=== PATIENT | female | born 1960 | race Caucasian/White ===

== ENCOUNTER 2017-02-23 08:00 | Emergency (ER) | payer OTHER ==
[2017-02-23 08:06] VITALS: BP 130/78; PULSE 85; TEMP 98; BMI 38.6
[2017-02-23] MEDS ORDERED: RABIES VACCINE (PCEC)/PF 2.5 UNIT/VIAL IM ONE (08:29)
[2017-02-23] MEDS ORDERED: DIPHTH,PERTUSS(ACELL),TET 0.5 ML DISP.SYRIN IM ONE (08:29)
[2017-02-23] MEDS ORDERED: RABIES IMMUNE GLOBULIN 300 UNITS/2 ML VIAL IM ONE (08:32)
[2017-02-23] MEDS ORDERED: RABIES IMMUNE GLOBULIN 300 UNITS/2 ML VIAL ONE ×2 (08:39→08:51)
--- NOTE | 2017-02-23 09:13 | PDOC ---
History of Present Illness - General Chief Complaint: Bite Stated Complaint: CAT BITE Time Seen by Provider: 02/23/17 08:18 History Source: Patient Exam Limitations: No Limitations - History of Present Illness Initial Comments: 02/23/17 10:10 56-year-old female presents the ED with cat scratch and bites to bilateral hands after feeding of Juanjose kitten at her home this morning. Patient states wash with soap and water and came to the ER since the status of the kitten is unknown. Patient denies diabetes or immunosuppression. Timing/Duration: 1-3 hours Severity: mild Associated Symptoms: reports: denies symptoms Past History - Travel Traveled outside of the country in the last 30 days: No - Past Medical History Allergies/Adverse Reactions: Allergies Allergy/AdvReac Type Severity Reaction Status Date / Time No Known Allergies Allergy Verified 02/23/17 08:03 Home Medications: Ambulatory Orders Cholecalciferol (Vitamin D3) [Vitamin D3] 1,000 unit PO DAILY 01/29/14 Oxycodone HCl/Acetaminophen [Percocet 10-325 mg Tablet] 1 - 2 tab PO Q6H PRN 11/27 Metoprolol Tartrate [Lopressor -] 25 mg PO BID #14 09/18/15 Ascorbic Acid [Vitamin C -] 2,000 mg PO DAILY 01/25/16 Aspirin [ASA -] 81 mg PO DAILY 01/25/16 Gabapentin [Neurontin] 200 mg PO DAILY 01/25/16 Glucosamine Sulfate Dipot Chlr [Glucosamine] 1,000 mg PO DAILY 01/25/16 Loratadine [Claritin -] 10 mg PO DAILY 01/25/16 Multivit-Min/FA/Lycopen/Lutein [Centrum Silver Tablet] 1 each PO DAILY 01/25/16 Walland 3/Dha/Epa/Other Om3/D3 [Walland-3 + Vitamin D3 Liquid] 200 ml PO DAILY 01/24 Topiramate [Topamax] 50 mg PO AM 01/25/16 Topiramate [Topamax] 100 mg PO HS 01/25/16 Methocarbamol [Robaxin -] 500 mg PO TID PRN #20 tablet 03/26/16 Naproxen [Naprosyn -] 500 mg PO BID PRN #14 tablet 03/26/16 Amoxicillin/Potassium Clav [Augmentin 875-125 Tablet] 1 each PO BID #14 tablet 02/23/17 Cardiac Disorders: Yes (SVT) HTN: Yes Hypercholesterolemia: Yes - Surgical History Cardiac Surgery: Yes (ablation) Orthopedic Surgery: Yes (ROTATOR CUFF REPAIR, KNEE SX) - Immunization History Immunization Up to Date: Yes - Psycho/Social/Smoking Cessation Hx Anxiety: No Suicidal Ideation: No Smoking History: Former smoker Have you smoked in the past 12 months: No If you are a former smoker, when did you quit?: 2006 Information on smoking cessation initiated: No Hx Alcohol Use: No Drug/Substance Use Hx: No Substance Use Type: None Hx Substance Use Treatment: No Patient Lives Alone: No Review of Systems - Review of Systems Able to Perform ROS?: Yes Constitutional: No: Symptoms Reported Musculoskeletal: No: Symptoms Reported Integumentary: Yes: See HPI Neurological: No: Tingling *Physical Exam - Vital Signs Last Vital Signs Temp Pulse Resp BP Pulse Ox 98.0 F 85 18 130/78 97 02/23/17 08:01 02/23/17 08:01 02/23/17 08:01 02/23/17 08:01 02/23/17 08:01 - Physical Exam General Appearance: Yes: Nourished, Appropriately Dressed. No: Apparent Distress Integumentary: positive: Other (small puncture/superficial abrasions to bilateral first digits and dorsal aspect of left third digit over PIP joint ) Neurologic: positive: Motor Strength 5/5 (hand grasp and ambulatory) Medical Decision Making - Medical Decision Making 02/23/17 10:18 Patient here for evaluation of cat bite from a wild kitten. Patient had 4 puncture/abrasion areas to bilateral hands. Patient is to receive the rabies immunoglobulin, rabies vaccine, tetanus, and will be discharged home Augmentin. Forms completed for [facility]. Patient understands to return here and debris which is 02/26. *DC/Admit/Observation/Transfer Diagnosis at time of Disposition: Cat bite of finger Qualifiers: Encounter type: initial encounter Qualified Code(s): S61.259A - Open bite of unspecified finger without damage to nail, initial encounter - Discharge Dispostion Disposition: HOME Condition at time of disposition: Good - Prescriptions Prescriptions: Amoxicillin/Potassium Clav [Augmentin 875-125 Tablet] 1 each PO BID #14 tablet - Referrals Referrals: Veronica Amin MD [Primary Care Provider] - - Patient Instructions Printed Discharge Instructions: DI for Animal Bites, How to Care for a Wild Animal Bite Additional Instructions: Please keep area clean and dry. Please take Augmentin as prescribed until completed. Please return here on Monday for next rabies injection. - Post Discharge Activity Work/School Note: Rabies Vaccination F/U Estefania.
== END 2017-02-23 09:21 | disposition home or self-care (01) ==
LOC: JERFT 08:00 → SUPCPDRO 08:00 → JERFT 09:21
PROC: 3E0234Z Introduction of Serum, Toxoid and Vaccine into Muscle, Percutaneous Approach (ICD-10-PCS; principal; 2017-02-23)
PROC: 3E0234Z Introduction of Serum, Toxoid and Vaccine into Muscle, Percutaneous Approach (ICD-10-PCS; 2017-02-23)
PROC: 3E0234Z Introduction of Serum, Toxoid and Vaccine into Muscle, Percutaneous Approach (ICD-10-PCS; 2017-02-23)
DX: S61.452A Open bite of left hand, initial encounter (principal); S61.451A Open bite of right hand, initial encounter; W55.01XA Bitten by cat, initial encounter; Y93.K9 Activity, other involving animal care; Y92.89 Other specified places as the place of occurrence of the external cause; Y99.8 Other external cause status
CPT/HCPCS: 90375; 90675; 90715; 99281-25

== ENCOUNTER 2017-02-26 07:07 | Emergency (ER) | payer OTHER ==
[2017-02-26 07:15] VITALS: BP 117/70; PULSE 89; TEMP 97.8; BMI 38.6
[2017-02-26] MEDS ORDERED: RABIES VACCINE (PCEC)/PF 2.5 UNIT/VIAL IM ONE (07:53)
--- NOTE | 2017-02-26 07:59 | PDOC ---
History of Present Illness - General Chief Complaint: Revisit,Rabies Injection Stated Complaint: REVISIT Time Seen by Provider: 02/26/17 07:51 History Source: Patient Exam Limitations: No Limitations - History of Present Illness Initial Comments: 02/26/17 07:55 CHIEF COMPLAINT: Here for second rabies vaccination HISTORY OF PRESENT ILLNESS: Patient is a 56-year-old female, presents emergency department for second rabies vaccination. Patient was initially seen here on where rabies vaccination and immunoglobulin were given. Schedule will be given to patient for future follow-up. Continues to be on Augmentin. 02/28/17 13:16 Past History - Past Medical History Allergies/Adverse Reactions: Allergies Allergy/AdvReac Type Severity Reaction Status Date / Time No Known Allergies Allergy Verified 02/26/17 07:15 Home Medications: Ambulatory Orders Cholecalciferol (Vitamin D3) [Vitamin D3 -] 1,000 unit PO DAILY 02/26/17 Metoprolol Tartrate [Lopressor -] 25 mg PO BID 02/26/17 Multivit-Min/FA/Lycopen/Lutein [Centrum Silver Tablet] 1 tab PO DAILY 02/26/17 Tramadol HCl 50 mg PO BID 02/26/17 Cardiac Disorders: Yes (SVT) HTN: Yes Hypercholesterolemia: Yes - Surgical History Cardiac Surgery: Yes (ablation) Orthopedic Surgery: Yes (ROTATOR CUFF REPAIR, KNEE SX) - Immunization History Immunization Up to Date: Yes - Psycho/Social/Smoking Cessation Hx Anxiety: No Suicidal Ideation: No Smoking History: Former smoker Have you smoked in the past 12 months: No If you are a former smoker, when did you quit?: 10 YRS Information on smoking cessation initiated: No Hx Alcohol Use: No Drug/Substance Use Hx: No Substance Use Type: None Hx Substance Use Treatment: No Review of Systems - Review of Systems Constitutional: No: Symptoms Reported Musculoskeletal: No: Symptoms Reported Integumentary: No: Symptoms Reported Hematologic/Lymphatic: No: Symptoms Reported All Other Systems: Reviewed and Negative *Physical Exam - Vital Signs Last Vital Signs Temp Pulse Resp BP Pulse Ox 97.8 F 89 20 117/70 98 02/26/17 07:12 02/26/17 07:12 02/26/17 07:12 02/26/17 07:12 02/26/17 07:12 - Physical Exam General Appearance: Yes: Appropriately Dressed. No: Apparent Distress Respiratory/Chest: positive: Lungs Clear, Normal Breath Sounds Cardiovascular: positive: Regular Rhythm, Regular Rate Lymphatic: negative: Adenopathy, Tenderness Extremity: positive: Normal Capillary Refill, Normal Inspection, Normal Range of Motion. negative: Tender Integumentary: positive: Normal Color, Dry. negative: Erythema, Swelling, Ecchymosis, Bruising Neurologic: positive: Alert, Normal Mood/Affect Medical Decision Making - Medical Decision Making 02/26/17 07:57 A/P: Patient here for second rabies vaccination schedule be given to patient, patient tolerated vaccination without difficulty. Return as instructed. *DC/Admit/Observation/Transfer Diagnosis at time of Disposition: Encounter for repeat administration of rabies vaccination - Discharge Dispostion Disposition: HOME Condition at time of disposition: Good Admit: No - Referrals Referrals: Evelina Purcell MD [Primary Care Provider] - - Patient Instructions Printed Discharge Instructions: DI for Rabies Vaccine - Post Discharge Activity Work/School Note: Rabies Vaccination F/U Estefania.
== END 2017-02-26 08:13 | disposition home or self-care (01) ==
LOC: JER 07:07
PROC: 3E0234Z Introduction of Serum, Toxoid and Vaccine into Muscle, Percutaneous Approach (ICD-10-PCS; principal; 2017-02-26)
DX: Z20.3 Contact with and (suspected) exposure to rabies (principal)
CPT/HCPCS: 90675; 99281-25

== ENCOUNTER 2017-03-02 03:18 | Emergency (ER) | payer OTHER ==
[2017-03-02] MEDS ORDERED: RABIES VACCINE (PCEC)/PF 2.5 UNIT/VIAL IM ONE (03:31)
--- NOTE | 2017-03-02 03:31 | PDOC ---
History of Present Illness - General History Source: Patient Exam Limitations: No Limitations - History of Present Illness Initial Comments: 03/02/17 03:36 The patient is a 56-year-old female, with a past medical history of A. fib, HTN , and hyperlipidemia (on xarelto), who presents to the ED for her seventh rabies shot today. Patient was bit 7 days ago to the right thumb by a cat. The wound appears to be healing well. The patient denies having any symptoms at this time. <Estelita Davis - Last Filed: 03/02/17 03:36> - General History Source: Patient <WilfredoDominguez cobos - Last Filed: 03/02/17 04:08> - General Chief Complaint: Revisit,Rabies Injection Stated Complaint: REVISIT Time Seen by Provider: 03/02/17 03:31 Past History <Estelita Davis - Last Filed: 03/02/17 03:36> - Past Medical History Cardiac Disorders: Yes (SVT) HTN: Yes Hypercholesterolemia: Yes - Surgical History Cardiac Surgery: Yes (ablation) Orthopedic Surgery: Yes (ROTATOR CUFF REPAIR, KNEE SX) - Immunization History Immunization Up to Date: Yes - Psycho/Social/Smoking Cessation Hx Anxiety: No Suicidal Ideation: No Smoking History: Former smoker Have you smoked in the past 12 months: No If you are a former smoker, when did you quit?: 10 YRS Hx Alcohol Use: No Drug/Substance Use Hx: No Substance Use Type: None Hx Substance Use Treatment: No <Dominguez Wells - Last Filed: 03/02/17 04:08> - Past Medical History Allergies/Adverse Reactions: Allergies Allergy/AdvReac Type Severity Reaction Status Date / Time No Known Allergies Allergy Verified 02/26/17 07:15 Home Medications: Ambulatory Orders Cholecalciferol (Vitamin D3) [Vitamin D3 -] 1,000 unit PO DAILY 02/26/17 Metoprolol Tartrate [Lopressor -] 25 mg PO BID 02/26/17 Multivit-Min/FA/Lycopen/Lutein [Centrum Silver Tablet] 1 tab PO DAILY 02/26/17 Tramadol HCl 50 mg PO BID 02/26/17 Review of Systems - Review of Systems Able to Perform ROS?: Yes Comments:: 03/02/17 03:36 CONSTITUTIONAL: Absent: fever, no chills, no fatigue EYES: Absent: visual changes ENT: Absent: ear pain, no sore throat CARDIOVASCULAR: Absent: chest pain, no palpitations RESPIRATORY: Absent: cough, no SOB GI: Absent: abdominal pain, no nausea, no vomiting, no constipation, no diarrhea GENITOURINARY: Absent: dysuria, no frequency, no hematuria MUSKULOSKELETAL: Absent: back pain, no arthralgia, no myalgia SKIN: Present: well healing wound to right thumb Absent: pallor NEURO: Absent: headache <Estelita Davis - Last Filed: 03/02/17 03:36> *Physical Exam - Physical Exam Comments: 03/02/17 03:37 GENERAL: Well-appearing, well-nourished. No apparent distress. HEENT: Normocephalic, atraumatic. PERRL, EOM intact. CARDIOVASCULAR: Normal S1, S2. Regular rate and rhythm. PULMONARY: Clear to auscultation bilaterally. ABDOMEN: Soft, non-distended, non-tender. EXTREMITIES: Normal ROM in all four extremities. No gross deformities. SKIN: Warm, dry. +Well healed wound on dorsum of the right thumb NEUROLOGICAL: No focal neurological deficits. <Estelita Davis - Last Filed: 03/02/17 03:36> Medical Decision Making - Medical Decision Making 03/02/17 03:56 Dr. Wells: The scribe's documentation has been prepared under my direction and personally reviewed by me in its entirery. I confirm that the note above accurately reflects all work, treatment, procedures, and medical decision making performed by me. <Dominguez Wells - Last Filed: 03/02/17 04:08> *DC/Admit/Observation/Transfer - Attestations Scribe Attestion: 03/02/17 03:38 Documentation prepared by Estelita Davis, acting as medical records tech for Dominguez Wells MD. <Estelita Davis - Last Filed: 03/02/17 03:36> - Discharge Dispostion Admit: No <Dominguez Wells - Last Filed: 03/02/17 04:08> Diagnosis at time of Disposition: Encounter for repeat administration of rabies vaccination - Discharge Dispostion Disposition: HOME Condition at time of disposition: Stable - Referrals Referrals: Evelina Purcell MD [Primary Care Provider] - - Patient Instructions Printed Discharge Instructions: DI for Rabies Vaccine
== END 2017-03-02 04:11 | disposition home or self-care (01) ==
LOC: JER 03:18
PROC: 3E0234Z Introduction of Serum, Toxoid and Vaccine into Muscle, Percutaneous Approach (ICD-10-PCS; principal; 2017-03-02)
DX: Z20.3 Contact with and (suspected) exposure to rabies (principal); W55.01XD Bitten by cat, subsequent encounter
CPT/HCPCS: 90675; 99281-25

== ENCOUNTER 2017-03-09 09:59 | Emergency (ER) | payer OTHER ==
[2017-03-09 10:13] VITALS: BP 110/59; PULSE 82; TEMP 97.7; BMI 38.6
[2017-03-09] MEDS ORDERED: RABIES VACCINE (PCEC)/PF 2.5 UNIT/VIAL IM ONE (10:15)
--- NOTE | 2017-03-09 10:19 | PDOC ---
History of Present Illness - General Chief Complaint: Revisit,Rabies Injection Stated Complaint: RABIES SHOT, REVISIT Time Seen by Provider: 03/09/17 10:15 History Source: Patient Exam Limitations: No Limitations - History of Present Illness Initial Comments: 03/09/17 15:17 Foot fourth and final rabies vaccination. Had altered stray kitten 2 weeks ago where she was bitten in the left hand well trying to cotton picker the. Was unable to identify the kitten and started rabies inoculation and vaccination. No problems with any the previous vaccines Past History - Past Medical History Allergies/Adverse Reactions: Allergies Allergy/AdvReac Type Severity Reaction Status Date / Time No Known Allergies Allergy Verified 03/09/17 10:10 Home Medications: Ambulatory Orders Cholecalciferol (Vitamin D3) [Vitamin D3 -] 1,000 unit PO DAILY 02/26/17 Metoprolol Tartrate [Lopressor -] 25 mg PO BID 02/26/17 Multivit-Min/FA/Lycopen/Lutein [Centrum Silver Tablet] 1 tab PO DAILY 02/26/17 Tramadol HCl 50 mg PO BID 02/26/17 Aspirin [ASA -] 81 mg PO DAILY 03/09/17 Oxycodone HCl/Acetaminophen [Percocet 5-325 mg Tablet] 1 - 2 tab PO Q8H Cardiac Disorders: Yes (SVT) HTN: Yes Hypercholesterolemia: Yes - Surgical History Cardiac Surgery: Yes (ablation) Orthopedic Surgery: Yes (ROTATOR CUFF REPAIR, KNEE SX) - Immunization History Immunization Up to Date: Yes - Psycho/Social/Smoking Cessation Hx Anxiety: No Suicidal Ideation: No Smoking History: Former smoker Have you smoked in the past 12 months: No If you are a former smoker, when did you quit?: 10 YRS Information on smoking cessation initiated: No Hx Alcohol Use: No Drug/Substance Use Hx: No Substance Use Type: None Hx Substance Use Treatment: No *Physical Exam - Vital Signs Last Vital Signs Temp Pulse Resp BP Pulse Ox 97.7 F 82 19 110/59 96 03/09/17 10:10 03/09/17 10:10 03/09/17 10:10 03/09/17 10:10 03/09/17 10:10 - Physical Exam General Appearance: Yes: Nourished, Appropriately Dressed. No: Apparent Distress HEENT: positive: HIRAL, Normal ENT Inspection, TMs Normal, Pharynx Normal Musculoskeletal: positive: Normal Inspection Extremity: positive: Normal Capillary Refill, Other (well-healed puncture wound to left hand at webspace on the dorsum of hand. Has full range of motion of fingers, no pain) Integumentary: positive: Normal Color Neurologic: positive: signalling and communications engineer II-XII NML intact, Fully Oriented, Alert, Normal Mood/ Affect, Normal Response, Motor Strength 12/16 Medical Decision Making - Medical Decision Making 03/09/17 15:19 Fourth rabies vaccination received. Course completed *DC/Admit/Observation/Transfer Diagnosis at time of Disposition: Need for rabies vaccination - Discharge Dispostion Disposition: HOME Condition at time of disposition: Stable Admit: No - Referrals Referrals: Evelina Purcell MD [Primary Care Provider] - - Patient Instructions Additional Instructions: this is your last vaccine.
== END 2017-03-09 10:51 | disposition home or self-care (01) ==
LOC: JERFT 09:59
PROC: 3E0234Z Introduction of Serum, Toxoid and Vaccine into Muscle, Percutaneous Approach (ICD-10-PCS; principal; 2017-03-09)
DX: Z20.3 Contact with and (suspected) exposure to rabies (principal)
CPT/HCPCS: 90675; 99281-25

== ENCOUNTER 2017-05-12 05:53 | Day surgery (SDC) | payer OTHER ==
[2017-05-11 09:23] VITALS: BMI 38.2
[2017-05-12] MEDS ORDERED: MIDAZOLAM HCL 2 MG/2 ML SINGLE DOSE VIAL ONE (07:33)
[2017-05-12] MEDS ORDERED: SUCCINYLCHOLINE CHLORIDE 200 MG/10 ML VIAL ONE (07:39)
[2017-05-12] MEDS ORDERED: PROPOFOL 20 ML ONE ×2 (07:39→07:52)
--- NOTE | 2017-05-12 07:39 | HP ---
Past Medical History - Primary Care Physician PCP:: Hammad Dan - Admission Chief Complaint: postmenopausal vaginal bleeding History of Present Illness: 56 yo f with hx of PMB and thicken EM , obesity, HTN admitted for hysteroscopy D &C , rba discussed History Source: Patient Limitations to Obtaining History: No Limitations - Past Medical History Cardiovascular: Yes: HTN, Hyperlipdemia Gastrointestinal: Yes: GERD. No: GI Bleed Musculoskeletal: Yes: Chronic low back pain - Past Surgical History Past Surgical History: Yes: Tubal Ligation (sling procedure,) Hx Myomectomy: No Hx Transabdominal Cerclage: No - Smoking History Smoking history: Former smoker Have you smoked in the past 12 months: No If you are a former smoker, when did you quit?: 10 YRS - Alcohol/Substance Use Hx Alcohol Use: No - Social History Usual Living Arrangement: Yes: With Spouse History of Recent Travel: No Home Medications - Allergies Allergies/Adverse Reactions: Allergies Allergy/AdvReac Type Severity Reaction Status Date / Time No Known Allergies Allergy Verified 05/12/17 06:31 - Home Medications Home Medications: Ambulatory Orders Cholecalciferol (Vitamin D3) [Vitamin D3 -] 1,000 unit PO DAILY 02/26/17 Metoprolol Tartrate [Lopressor -] 25 mg PO BID 02/26/17 Multivit-Min/FA/Lycopen/Lutein [Centrum Silver Tablet] 1 tab PO DAILY 02/26/17 Aspirin [ASA -] 81 mg PO DAILY 03/09/17 Oxycodone HCl/Acetaminophen [Percocet 5-325 mg Tablet] 1 - 2 tab PO Q8H Liraglutide [Saxenda] 3 mg SQ DAILY 05/11/17 Sumatriptan Succinate [Imitrex -] 100 mg PO PRN PRN 05/11/17 Lidocaine 5% Patch [Lidoderm Patch -] 1 patch TP PRN PRN 05/12/17 Review of Systems - Review of Systems Constitutional: reports: No Symptoms Eyes: reports: No Symptoms HENT: reports: No Symptoms Neck: reports: No Symptoms Cardiovascular: reports: No Symptoms Respiratory: reports: No Symptoms Gastrointestinal: reports: No Symptoms Genitourinary: reports: Vaginal Bleeding Breasts: reports: No Symptoms Reported Musculoskeletal: reports: No Symptoms Integumentary: reports: No Symptoms Neurological: reports: No Symptoms Endocrine: reports: No Symptoms Hematology/Lymphatic: reports: No Symptoms Psychiatric: reports: No Symptoms Physical Exam-FISH WORM GROWER Vital Signs: Vital Signs Temperature 97.9 F 05/12/17 06:26 Pulse Rate 86 05/12/17 06:26 Respiratory Rate 20 05/12/17 06:26 Blood Pressure 126/77 05/12/17 06:26 O2 Sat by Pulse Oximetry (%) 98 05/12/17 06:26 Constitutional: Yes: Well Nourished, No Distress, Calm, Obese Eyes: Yes: WNL, Conjunctiva Clear, EOM Intact HENT: Yes: WNL, Atraumatic, Normocephalic Neck: Yes: WNL, Supple, Trachea Midline Cardiovascular: Yes: WNL, Regular Rate and Rhythm Respiratory: Yes: WNL, Regular, CTA Bilaterally Gastrointestinal: Yes: WNL ...Rectal Exam: Yes: WNL Renal/: Yes: WNL Pelvis: Yes: WNL External Genitalia: Yes: Normal Vaginal Exam: Yes: Normal Cervix: Yes: Normal Uterus: Yes: Normal Adnexa: Not Palpable: Left, Right Breast(s): Yes: WNL Musculoskeletal: Yes: WNL Extremities: Yes: WNL Integumentary: Yes: WNL Neurological: Yes: WNL, Alert, Oriented ...Motor Strength: WNL Psychiatric: Yes: WNL, Alert, Oriented Problem List - Problem (1) Postmenopausal bleeding Code(s): N95.0 - POSTMENOPAUSAL BLEEDING (2) Thickened endometrium Code(s): R93.8 - ABNORMAL FINDINGS ON DIAGNOSTIC IMAGING OF BODY STRUCTURES Assessment/Plan hysteroscopy D&C , polypectomy
[2017-05-12] MEDS ORDERED: IBUPROFEN 800 MG/8 ML IJ IVPB PRN (07:40)
[2017-05-12] MEDS ORDERED: IBUPROFEN 600 MG TABLET (FP) PO PRN (07:40)
[2017-05-12] MEDS ORDERED: oxyCODONE HCL 5 MG TABLET PO PRN ×2 (07:40→08:19)
[2017-05-12] MEDS ORDERED: ONDANSETRON 4 MG/2 ML VIAL IVPB PRN (07:40)
[2017-05-12] MEDS ORDERED: ELECTROLYTE-148 SOLN 1,000 ML IV SCH (07:45)
[2017-05-12] MEDS ORDERED: PROMETHAZINE HCL 25 MG/1 ML VIAL IVPUSH PRN (08:19)
[2017-05-12] MEDS ORDERED: LACTATED RINGERS SOLUTION 1,000 ML IV SCH (08:30)
--- NOTE | 2017-05-12 08:49 | OP ---
DATE OF OPERATION: 05/12/2017 PREOPERATIVE DIAGNOSES: Postmenopausal bleeding, thickened endometrium. POSTOPERATIVE DIAGNOSES: Postmenopausal bleeding, thickened endometrium. PROCEDURE: Hysteroscopy, dilatation and curettage. SURGEON: Hmamad Dan MD ANESTHESIA: General. ANESTHESIOLOGIST: Nano Espinoza MD ESTIMATED BLOOD LOSS: 25 mL. OPERATION: Patient was taken to the operating room. Under adequate general anesthesia placed in lithotomy position. Examination under anesthesia revealed external genitalia appeared to be normal. Vagina was normal. Cervix was clean, no gross lesion. There was a grade 2 cystocele and there was a uterus normal size. Adnexae: No masses were palpable. Then, with a weighted speculum in the vagina, anterior lip of the cervix was grasped with single-tooth tenaculum. Endocervical curetting was done. Uterine cavity was sounded to 6 cm. Then, hysteroscope was introduced. Visualization of endocervical canal appeared to be normal. Uterus was atrophic at the lower uterine area and there was a small amount of tissue at both cornual regions of the uterus. No polyp was seen. Both cornual regions were visualized. Hysteroscope was withdrawn. Cervix was gradually dilated with Hegar dilator and then endometrium was curetted. A small amount of tissue was obtained. Patient tolerated procedure well, left the OR in good condition. Liseth [id number]
[2017-05-12 10:25] VITALS: TEMP 98.2
[2017-05-12] MEDS ORDERED: IBUPROFEN 600 MG TABLET (FP) PO ONE (12:05)
[2017-05-12 12:36] VITALS: BP 129/72; PULSE 79
--- NOTE | 2017-05-12 12:40 | EKG ---
Test Reason : Blood Pressure : / mmHG Vent. Rate : 073 BPM Atrial Rate : 073 BPM P-R Int : 198 ms QRS Dur : 082 ms QT Int : 376 ms P-R-T Axes : 066 014 017 degrees QTc Int : 414 ms NORMAL SINUS RHYTHM POSSIBLE LEFT ATRIAL ENLARGEMENT NONSPECIFIC ST ABNORMALITY WHEN COMPARED WITH ECG OF 25-JAN-2016 07:35, NO SIGNIFICANT CHANGE WAS FOUND Confirmed by ALFREDA ROSSI MD ([id number]) on 05/12/2017 12:40:13 PM Referred By: TERESITA BARROSO Confirmed By:ALFREDA ROSSI MD
--- NOTE | 2017-05-15 11:27 | PATH ---
Surgical Pathology Report Patient Name: IRIS CHRISTIANSEN [facility]. Rec. #: [id number] /Age/Gender: 1960 (Age: 56) / F Account: [id number] Location: [facility] SURGICAL Taken: 05/11/2017 Received: 05/12/2017 Reported: 05/15/2017 Physicians: Hammad Dan M.D. Specimen(s) Received A: ENDOCERVICAL CURETTINGS B: ENDOMETRIAL CURETTINGS Clinical History Postmenopausal bleeding Final Diagnosis A. ENDOCERVIX, CURETTAGE: FRAGMENTS OF BENIGN ENDOCERVICAL TISSUE. B. ENDOMETRIUM, CURETTAGE: FRAGMENTS OF ENDOMETRIAL POLYP. BACKGROUND STRIPS OF ATROPHIC ENDOMETRIUM. FRAGMENTS OF BENIGN SQUAMOUS EPITHELIUM AND ENDOCERVICAL TISSUE. Electronically Signed Iraj He M.D. Gross Description A. Received in formalin labelled "endocervical curetting" is a 1.0 cm in greatest dimension aggregate of mucoid material. Embedding will be attempted in a single cassette. B. Received in formalin labelled "endometrial curetting" is a 0.6 cm greatest dimension aggregate of serrano tissue fragments. Totally submitted in one cassette. [facility]/05/12/2017 [facility]/05/12/2017
== END 2017-05-12 12:35 | disposition home or self-care (01) ==
LOC: JASU-SURG 05:53
PROVIDERS: ATTEND Obstetrics & Gynecology
PROC: 0UDB8ZX Extraction of Endometrium, Via Natural or Artificial Opening Endoscopic, Diagnostic (ICD-10-PCS; principal; 2017-05-12 07:30)
DX: N95.0 Postmenopausal bleeding (principal); R93.8 Abnormal findings on diagnostic imaging of other specified body structures
CPT/HCPCS: 88305-TC; 93005; 93010; 94760

== ENCOUNTER 2017-05-31 05:59 | Inpatient (IN) | payer OTHER ==
[2017-05-31] MEDS ORDERED: ONDANSETRON 4 MG/2 ML VIAL IVPUSH STA (06:07)
[2017-05-31] MEDS ORDERED: morphine CARPU-JECT 2 MG/1 ML DISP.SYRIN IVPUSH ONE ×2 (06:07→06:15)
--- NOTE | 2017-05-31 06:08 | PDOC ---
History of Present Illness - General History Source: Patient Exam Limitations: No Limitations - History of Present Illness Initial Comments: 05/31/17 06:12 The patient is a 57 year old female, with a significant past medical history of A. fib, HTN, and Hyperlipidemia who presents to the emergency department with L flank pain. 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 Patient denies any dysuria, frequency, urgency or hematuria. She denies chest pain, headache or dizziness. She denies fever, chills, abdominal pain, nausea, vomit.Patient denies sick contacts or recent travel. Allergies: NKA Past surgical history: None Social history: None PCP: Dr. Purcell <Saundra Hameed - Last Filed: 05/31/17 06:12> - General History Source: Patient <Dominguez Wells - Last Filed: 05/31/17 19:41> - General Stated Complaint: LFT FLANK PAIN Time Seen by Provider: 05/31/17 06:05 Past History <Saundra Hameed - Last Filed: 05/31/17 06:12> - Past Medical History Cardiac Disorders: Yes (SVT) HTN: Yes Hypercholesterolemia: Yes - Surgical History Cardiac Surgery: Yes (ablation (2016)) Orthopedic Surgery: Yes (ROTATOR CUFF REPAIR, KNEE SX) - Immunization History Immunization Up to Date: Yes - Suicide/Smoking/Psychosocial Hx Smoking History: Former smoker Have you smoked in the past 12 months: No If you are a former smoker, when did you quit?: 10 YRS Hx Alcohol Use: No Drug/Substance Use Hx: No Substance Use Type: None Hx Substance Use Treatment: No <Dominguez Wells - Last Filed: 05/31/17 19:41> - Past Medical History Allergies/Adverse Reactions: Allergies Allergy/AdvReac Type Severity Reaction Status Date / Time No Known Allergies Allergy Verified 05/31/17 06:07 Home Medications: Ambulatory Orders Cholecalciferol (Vitamin D3) [Vitamin D3 -] 1,000 unit PO DAILY 02/26/17 Metoprolol Tartrate [Lopressor -] 25 mg PO BID 02/26/17 Multivit-Min/FA/Lycopen/Lutein [Centrum Silver Tablet] 1 tab PO DAILY 02/26/17 Aspirin [ASA -] 81 mg PO DAILY 07/27/17 Oxycodone HCl/Acetaminophen [Percocet 5-325 mg Tablet] 1 - 2 tab PO Q8H Liraglutide [Saxenda] 3 mg SQ DAILY 05/11/17 Sumatriptan Succinate [Imitrex -] 100 mg PO PRN PRN 05/11/17 Lidocaine 5% Patch [Lidoderm Patch -] 1 patch TP DAILY PRN 05/12/17 Review of Systems - Review of Systems Able to Perform ROS?: Yes Comments:: 05/31/17 06:12 CONSTITUTIONAL: Absent: fever, chills, diaphoresis, generalized weakness, malaise, loss of appetite HEENT: Absent: rhinorrhea, nasal congestion, throat pain, throat swelling, difficulty swallowing, mouth swelling, ear pain, eye pain, visual Changes CARDIOVASCULAR: Absent: chest pain, syncope, palpitations, irregular heart rate, lightheadedness , peripheral edema RESPIRATORY: Absent: cough, shortness of breath, dyspnea with exertion, orthopnea, wheezing, stridor, hemoptysis GASTROINTESTINAL: Absent: abdominal pain, abdominal distension, nausea, vomiting, diarrhea, constipation, melena, hematochezia GENITOURINARY: +L flank pain Absent: dysuria, frequency, urgency, hesitancy, hematuria, genital pain MUSCULOSKELETAL: Absent: myalgia, arthralgia, joint swelling SKIN: Absent: rash, itching, pallor HEMATOLOGIC/IMMUNOLOGIC: Absent: easy bleeding, easy bruising, lymphadenopathy, frequent infections ENDOCRINE: Absent: unexplained weight gain, unexplained weight loss, heat intolerance, cold intolerance NEUROLOGIC: Absent: headache, focal weakness or paresthesias, dizziness, unsteady gait, seizure, mental status changes, bladder or bowel incontinence PSYCHIATRIC: Absent: anxiety, depression, suicidal or homicidal ideation, hallucinations. <Saundra Hameed - Last Filed: 05/31/17 06:12> *Physical Exam - Vital Signs Last Vital Signs Temp Pulse Resp BP Pulse Ox 97.5 F L 83 18 132/81 100 05/31/17 06:07 05/31/17 06:07 05/31/17 06:07 05/31/17 06:07 05/31/17 06:07 - Physical Exam Comments: 05/31/17 06:12 GENERAL: Well developed, well nourished. Awake and alert. +In moderate distress. HEENT: Normocephalic, atraumatic. PERRLA, EOMI. No conjunctival pallor. Sclerae are non -icteric. Moist mucous membranes. Oropharynx is clear. NECK: Supple. Full ROM. No JVD. Carotid pulses 2+ and symmetric, without bruits. No thyromegaly. No lymphadenopathy. CARDIOVASCULAR: Regular rate and rhythm. No murmurs, rubs, or gallops. Distal pulses are 2+ and symmetric. PULMONARY: No evidence of respiratory distress. Lungs clear to auscultation bilaterally. No wheezing, rales or rhonchi. ABDOMINAL: +L CVA tenderness. Soft. Non-tender. Non-distended. No rebound or guarding. No organomegaly. Normoactive bowel sounds. MUSCULOSKELETAL Normal range of motion at all joints. No bony deformities or tenderness. No CVA tenderness. EXTREMITIES: No cyanosis. No clubbing. No edema. No calf tenderness. SKIN: Warm and dry. Normal capillary refill. No rashes. No jaundice. NEUROLOGICAL: Alert, awake, appropriate. Cranial nerves 2-12 intact. No deficits to light touch and temperature in face, upper extremities and lower extremities. No motor deficits in the in face, upper extremities and lower extremities. Normoreflexic in the upper and lower extremities. Normal speech. Toes are downgoing bilaterally. Gait is normal without ataxia. PSYCHIATRIC: Cooperative. Good eye contact. Appropriate mood and affect. <Saundra Hameed - Last Filed: 05/31/17 06:12> ED Treatment Course - LABORATORY CBC & Chemistry Diagram: 05/31/17 06:10 05/31/17 06:10 <Dominguez Wells - Last Filed: 05/31/17 19:41> Medical Decision Making - Medical Decision Making 05/31/17 19:41 Dr. Wells: The scribe's documentation has been prepared under my direction and personally reviewed by me in its entirery. I confirm that the note above accurately reflects all work, treatment, procedures, and medical decision making performed by me. <Dominguez Wells - Last Filed: 05/31/17 19:41> *DC/Admit/Observation/Transfer - Attestations Scribe Attestion: 05/31/17 06:12 Documentation prepared by Saundra Hameed, acting as medical cash poster for Dominguez Wells DO. <Saundra Hameed - Last Filed: 05/31/17 06:12> <Dominguez Wells - Last Filed: 05/31/17 19:41> Diagnosis at time of Disposition: Flank pain, Colitis - Discharge Dispostion Condition at time of disposition: Stable
[2017-05-31] MEDS ORDERED: ONDANSETRON 4 MG/2 ML VIAL ONE (06:11)
[2017-05-31] MEDS ORDERED: morphine CARPU-JECT 10 MG/1 ML DISP.SYRIN ONE (06:11)
[2017-05-31 06:20] LABS: BASOPHIL 0.6 % (0-2.0); EOSINOPHIL 1.3 % (0-4.5); MCH 31.7 pg (25.7-33.7); MCHC 33.6 g/dl (32.0-36.0); MEAN CELL VOLUME 94.4 fl (80-96); NEUTROPHILS 41.1 % (42.8-82.8); PLATELET COUNT 304 K/MM3 (134-434); RDW 14.4 % (11.6-15.6); WHITE BLOOD COUNT 9.6 K/mm3 (4.0-10.0)
[2017-05-31 06:33] VITALS: BMI 37.8
[2017-05-31 06:42] LABS: INR 0.98 (0.82-1.09); PROTHROMBIN TIME (PATIENT) 11.1 SEC (9.98-11.88)
[2017-05-31 06:53] LABS: ALK PHOS 87 U/L (45-117); ANION GAP 7 (8-16); BILIRUBIN,TOTAL 0.4 mg/dL (0.2-1.0); CALCIUM 8.6 mg/dL (8.5-10.1); CO2 27 mmol/L (21-32); CREATININE 0.6 mg/dL (0.55-1.02); GLUCOSE,RANDOM 98 mg/dL (74-106); SGOT/AST 30 U/L (15-37); SGPT/ALT 32 U/L (12-78); TOT PROT 7.2 g/dl (6.4-8.2)
[2017-05-31 07:12] LABS: URINE APPEARANCE SLCLOUDY; URINE BILIRUBIN NEGATIVE (NEGATIVE); URINE BLOOD NEGATIVE (NEGATIVE); URINE COLOR AMBER; URINE GLUCOSE (UA) NEGATIVE (NEGATIVE); URINE KETONE TRACE (NEGATIVE); URINE NITRITE NEGATIVE (NEGATIVE); URINE PROTEIN NEGATIVE (NEGATIVE); URINE UROBILINOGEN NEGATIVE mg/dL (0.2-1.0)
--- NOTE | 2017-05-31 09:09 | PDOC ---
*Physical Exam - Vital Signs Last Vital Signs Temp Pulse Resp BP Pulse Ox 98.1 F 71 20 135/78 100 05/31/17 08:00 05/31/17 08:00 05/31/17 08:00 05/31/17 08:00 05/31/17 08:00 <Michael Lees - Last Filed: 05/31/17 13:41> - Vital Signs Last Vital Signs Temp Pulse Resp BP Pulse Ox 98.1 F 71 20 135/78 100 05/31/17 08:00 05/31/17 08:00 05/31/17 08:00 05/31/17 08:00 05/31/17 08:00 <Rimma Ritchie - Last Filed: 05/31/17 14:22> ED Treatment Course - LABORATORY CBC & Chemistry Diagram: 05/31/17 06:10 05/31/17 06:10 - ADDITIONAL ORDERS Additional order review: Laboratory Results 05/31/17 05/31/17 05/31/17 06:50 06:10 06:10 PT with INR 11.10 INR 0.98 Sodium 138 Potassium 3.9 Chloride 104 Carbon Dioxide 27 Anion Gap 7 L BUN 22 H D Creatinine 0.6 Creat Clearance w eGFR > 60 Random Glucose 98 D Calcium 8.6 Total Bilirubin 0.4 AST 30 D ALT 32 Alkaline Phosphatase 87 Total Protein 7.2 Albumin 4.0 Urine Color La Urine Appearance Slcloudy Urine pH 5.0 Urine Protein Negative Urine Glucose (UA) Negative Urine Ketones Trace H Urine Blood Negative Urine Nitrite Negative Urine Bilirubin Negative Urine Urobilinogen Negative 05/31/17 06:10 RBC 4.19 MCV 94.4 MCHC 33.6 RDW 14.4 MPV 7.0 L Neutrophils % 41.1 L Lymphocytes % 47.8 H Monocytes % 9.2 Eosinophils % 1.3 Basophils % 0.6 - RADIOLOGY Radiology Studies Ordered: Category Date Time Status ABDOMEN & PELVIS CT WITH CONTR [CT] Stat CT Scan 05/31/17 08:29 Ordered - Medications Given in the ED: ED Medications Discontinued Medications Generic Name Dose Route Start Last Admin Trade Name Freq PRN Reason Stop Dose Admin Morphine Sulfate 2 mg 05/31/17 06:07 05/31/17 06:15 Morphine Injection - IVPUSH 05/31/17 06:08 2 mg ONCE ONE Administration Morphine Sulfate 6 mg 05/31/17 06:15 05/31/17 06:57 Morphine Injection - IVPUSH 05/31/17 06:16 6 mg ONCE ONE Administration Ondansetron HCl 4 mg 05/31/17 06:07 05/31/17 06:15 Zofran Injection IVPUSH 05/31/17 06:08 4 mg ONCE STA Administration <Michael Lees - Last Filed: 05/31/17 13:41> - LABORATORY CBC & Chemistry Diagram: 05/31/17 06:10 05/31/17 06:10 - ADDITIONAL ORDERS Additional order review: Laboratory Results 05/31/17 05/31/17 05/31/17 06:50 06:10 06:10 PT with INR 11.10 INR 0.98 Sodium 138 Potassium 3.9 Chloride 104 Carbon Dioxide 27 Anion Gap 7 L BUN 22 H D Creatinine 0.6 Creat Clearance w eGFR > 60 Random Glucose 98 D Calcium 8.6 Total Bilirubin 0.4 AST 30 D ALT 32 Alkaline Phosphatase 87 Total Protein 7.2 Albumin 4.0 Urine Color La Urine Appearance Slcloudy Urine pH 5.0 Urine Protein Negative Urine Glucose (UA) Negative Urine Ketones Trace H Urine Blood Negative Urine Nitrite Negative Urine Bilirubin Negative Urine Urobilinogen Negative 05/31/17 06:10 RBC 4.19 MCV 94.4 MCHC 33.6 RDW 14.4 MPV 7.0 L Neutrophils % 41.1 L Lymphocytes % 47.8 H Monocytes % 9.2 Eosinophils % 1.3 Basophils % 0.6 - Medications Given in the ED: ED Medications Discontinued Medications Generic Name Dose Route Start Last Admin Trade Name Rae PRN Reason Stop Dose Admin Morphine Sulfate 2 mg 05/31/17 06:07 05/31/17 06:15 Morphine Injection - IVPUSH 05/31/17 06:08 2 mg ONCE ONE Administration Morphine Sulfate 6 mg 05/31/17 06:15 05/31/17 06:57 Morphine Injection - IVPUSH 05/31/17 06:16 6 mg ONCE ONE Administration Ondansetron HCl 4 mg 05/31/17 06:07 05/31/17 06:15 Zofran Injection IVPUSH 05/31/17 06:08 4 mg ONCE STA Administration <Rimma Ritchie - Last Filed: 05/31/17 14:22> Medical Decision Making - Medical Decision Making 05/31/17 09:25 Waiting for Ur Leukocyte Esterase time stamped at 6:50am. @8:35am Called Lab at [facility]. State they haven't received delivery from [facility] yet today Called [id number] lab here. Stated they would check for specimen ? @8:41am received call from [facility] lab who reported that they received first batch of specimens and did not receive this patients specimen. @8:43am called [facility] lab here, state that they do have the specimen and it won't be sent over to the [facility] lab until 10:00am 05/31/17 14:20 Dr. Purcell was paged via office phone. AKOSUA Nicole is operational communication chief for hospital admissions. AKOSUA Nicole called back. Dr. Calderón was paged via office phone at 1:46pm. Dr. Calderón was paged and connected at 2:20pm. <Rimma Ritchie - Last Filed: 05/31/17 14:22> *DC/Admit/Observation/Transfer - Discharge Dispostion Admit: Yes - Attestations Physician Attestion: 05/31/17 13:43 I, Dr. Michael Lees MD, attest that this document has been prepared under my direction and personally reviewed by me in its entirety. I further attest, that it accurately reflects all work, treatment, procedures and medical decision -making performed by me. <Michael Lees - Last Filed: 05/31/17 13:41> <Rimma Ritchie - Last Filed: 05/31/17 14:22> Diagnosis at time of Disposition: Flank pain - Discharge Dispostion Condition at time of disposition: Stable - Referrals - Patient Instructions - Post Discharge Activity
[2017-05-31] MEDS ORDERED: ACETAMINOPHEN 1000 MG/100 ML VIAL (NON FORMULARY) IVPB ONE (10:15)
[2017-05-31] MEDS ORDERED: ACETAMINOPHEN INJECTION 100 ML IVPB ONE (10:32)
[2017-05-31 10:50] LABS: URINE BACTERIA MODERATE /hpf (NEGATIVE); URINE LEUK ESTERASE 1+ (NEGATIVE); URINE RBC 0-3 /hpf (0-3)
[2017-05-31] MEDS ORDERED: KETOROLAC TROMETHAMINE 15 MG/ML VIAL IVPUSH ONE (12:15)
[2017-05-31] MEDS ORDERED: KETOROLAC TROMETHAMINE 15 MG/ML VIAL ONE (12:29)
[2017-05-31] MEDS ORDERED: SODIUM CHLORIDE 0.9% 500 ML INFUS.BAG IV ONE (14:22)
[2017-05-31] MEDS ORDERED: DEXTROSE 5%-LACTATED RINGERS 1,000 ML IV SCH (14:30)
[2017-05-31] MEDS ORDERED: morphine CARPU-JECT 2 MG/1 ML DISP.SYRIN IVPUSH PRN (15:43)
[2017-05-31] MEDS ORDERED: ONDANSETRON 4 MG/2 ML VIAL IVPUSH PRN (15:46)
[2017-05-31] MEDS ORDERED: ACETAMINOPHEN 1000 MG/100 ML VIAL (NON FORMULARY) IVPB PRN (15:46)
[2017-05-31] MEDS ORDERED: LIDOCAINE 5% TOPICAL PATCH TP PRN (15:47)
--- NOTE | 2017-05-31 16:02 | HP ---
Admitting History and Physical - Primary Care Physician PCP: Evelina Purcell - Admission Chief Complaint: Abdominal pain. Diarrhea History of Present Illness: Ms. 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 She was seen by her PCP Dr Purcell at the office 1 day ago and thought to be rib pain. This AM when she came in to work she took aleve, tylenol and percocet that she usually takes for her chronic right knee pain. An hour after the medication, she had an episode of loose stool and LUQ of 10/10 and was brought in to ER by her fellow nurse. Patient denies any dysuria, frequency, urgency or hematuria, prior diarrhea, chest pain, headache or dizziness. Also denies fever, chills, abdominal pain, nausea, vomit. Patient denies sick contacts or recent travel. History Source: Patient Limitations to Obtaining History: No Limitations - Past Medical History Cardiovascular: Yes: HTN, Hyperlipdemia, Other (SVT's with cardiac ablation in 2016) Gastrointestinal: Yes: Diverticulosis (in colonoscopy done in 2014 by Efrain Barros MD), GERD, Hemorrhoids. No: GI Bleed Reproductive: Yes: Other (Ovarian cysts) ...: No ...Para: 2 Musculoskeletal: Yes: Chronic low back pain, Other (lumbar spine disc herniations) Endocrine: Yes: Other (obesity) - Past Surgical History Past Surgical History: Yes: Tubal Ligation (sling procedure,) Additional Past Surgical History: BL knee meniscal tear repair, right shoulder rotator cuff repair, bladder lift, D&C - Smoking History Smoking history: Former smoker (31 pack years) Have you smoked in the past 12 months: No If you are a former smoker, when did you quit?: 10 YRS - Alcohol/Substance Use Hx Alcohol Use: Yes (socially) History of Substance Use: reports: None - Social History Usual Living Arrangement: Yes: With Spouse ADL: Independent History of Recent Travel: No Home Medications - Allergies Allergies/Adverse Reactions: Allergies Allergy/AdvReac Type Severity Reaction Status Date / Time No Known Allergies Allergy Verified 05/31/17 06:07 - Home Medications Home Medications: Ambulatory Orders Cholecalciferol (Vitamin D3) [Vitamin D3 -] 1,000 unit PO DAILY 02/26/17 Metoprolol Tartrate [Lopressor -] 25 mg PO BID 02/26/17 Multivit-Min/FA/Lycopen/Lutein [Centrum Silver Tablet] 1 tab PO DAILY 02/26/17 Aspirin [ASA -] 81 mg PO DAILY 03/09/17 Oxycodone HCl/Acetaminophen [Percocet 5-325 mg Tablet] 1 - 2 tab PO Q8H Liraglutide [Saxenda] 3 mg SQ DAILY 05/11/17 Sumatriptan Succinate [Imitrex -] 100 mg PO PRN PRN 05/11/17 Lidocaine 5% Patch [Lidoderm Patch -] 1 patch TP DAILY PRN 05/12/17 Family Disease History - Family Disease History Family Disease History: Diabetes: Mother (HTN,HL,DM2,Obesity,basal cell carcinoma of the skin), Daughter (2 daughters healthy), Heart Disease: Father ( emphysema 2/2smoking, HI,pulmonayr embolism, alcohol abuse,Psoriasis), Mother, CA: Mother, Respiratory: Father, Other: Father, Mother, Brother (2 brother's, 1 with alc abuse, psoriasis; 2nd brother: no significant hx) Other Family History: MGM-basal cell carcinoma,depression,dementia. MGF- drug abuse,depression,anxiety,PTSD (Vet). PGM-OA. PGF-HI,arrhythmia Review of Systems - Review of Systems Constitutional: reports: No Symptoms Eyes: reports: No Symptoms Neck: reports: No Symptoms Cardiovascular: reports: No Symptoms Respiratory: reports: No Symptoms Gastrointestinal: reports: Abdominal Pain, Diarrhea Genitourinary: reports: No Symptoms Breasts: reports: No Symptoms Reported Musculoskeletal: reports: No Symptoms Integumentary: reports: No Symptoms Neurological: reports: No Symptoms Endocrine: reports: No Symptoms Hematology/Lymphatic: reports: No Symptoms Psychiatric: reports: No Symptoms Pain Intensity: 5 Physical Examination Vital Signs: Vital Signs Temperature 98.1 F 05/31/17 08:00 Pulse Rate 68 05/31/17 14:45 Respiratory Rate 18 05/31/17 14:45 Blood Pressure 110/50 05/31/17 14:45 O2 Sat by Pulse Oximetry (%) 99 05/31/17 14:45 Constitutional: Yes: Well Nourished, No Distress, Calm Cardiovascular: Yes: Regular Rate and Rhythm Respiratory: Yes: Regular Gastrointestinal: Yes: Soft, Abdomen, Obese, Hyperactive Bowel Sounds Renal/: Yes: CVA Tenderness - Left Edema: No Peripheral Pulses WNL: Yes Neurological: Yes: Alert, Oriented Psychiatric: Yes: Alert, Oriented Imaging - Results Cat Scan: Report Reviewed Problem List - Problems (1) Colitis Assessment/Plan: -GI consult -CT scan reviewed -NPO for now -IVF -stool sample for O&P, cdiff and culture Code(s): K52.9 - NONINFECTIVE GASTROENTERITIS AND COLITIS, UNSPECIFIED (2) Diverticulosis Code(s): K57.90 - DVRTCLOS OF INTEST, PART UNSP, W/O PERF OR ABSCESS W/O BLEED (3) Flank pain Assessment/Plan: Colitis? last colonoscopy in 2014 had left colon diverticulosis Code(s): R10.9 - UNSPECIFIED ABDOMINAL PAIN (4) Low back pain Assessment/Plan: -mri lumbar spine -neurology consult Code(s): M54.5 - LOW BACK PAIN Assessment/Plan see problem list
[2017-05-31] MEDS: LACTATED RINGERS SOLUTION 1,000 ML IV SCH (17:04)
[2017-05-31] MEDS ORDERED: METOPROLOL TARTRATE 5 MG/5 ML VIAL IVPB PRN (17:18)
--- NOTE | 2017-05-31 19:30 | CON.GI ---
Consult Consult Specialty:: Gastroenterology Referred by:: Dr Purcell/ Miss Corey [facility] [employer] - History of Present Illness Chief Complaint: abnormal catscan left lower quadrant History of Present Illness: 57 y/o Female with PMH of herniated disc was complainig of left lower back pain radiating to the left lower quadrant. She denies diarrhea, rectal bleeding, weight loss. Her last colonoscopy was three years ago with Dr Barros. The results are not available for review. - Past Medical History Cardio/Vascular: Yes: HTN, Hyperlipdemia Gastrointestinal: Yes: GERD. No: GI Bleed Musculoskeletal: Yes: Chronic low back pain - Past Surgical History Past Surgical History: Yes: Tubal Ligation (sling procedure,) - Alcohol/Substance Use Hx Alcohol Use: No - Smoking History Smoking history: Former smoker Have you smoked in the past 12 months: No If you are a former smoker, when did you quit?: 10 YRS - Social History History of Recent Travel: No Home Medications - Allergies Allergies/Adverse Reactions: Allergies Allergy/AdvReac Type Severity Reaction Status Date / Time No Known Allergies Allergy Verified 05/31/17 06:07 - Home Medications Home Medications: Ambulatory Orders Cholecalciferol (Vitamin D3) [Vitamin D3 -] 1,000 unit PO DAILY 02/26/17 Metoprolol Tartrate [Lopressor -] 25 mg PO BID 02/26/17 Multivit-Min/FA/Lycopen/Lutein [Centrum Silver Tablet] 1 tab PO DAILY 02/26/17 Aspirin [ASA -] 81 mg PO DAILY 03/09/17 Oxycodone HCl/Acetaminophen [Percocet 5-325 mg Tablet] 1 - 2 tab PO Q8H Liraglutide [Saxenda] 3 mg SQ DAILY 05/11/17 Sumatriptan Succinate [Imitrex -] 100 mg PO PRN PRN 05/11/17 Lidocaine 5% Patch [Lidoderm Patch -] 1 patch TP DAILY PRN 05/12/17 Review of Systems - Review of Systems Constitutional: denies: No Symptoms, Chills, Diaphoresis, Fever, Lethargy, Loss of Appetite, Malaise, Night Sweats, Unintentional Wgt. Loss, Weakness, Other Eyes: denies: No Symptoms, Blind Spots, Blurred Vision, Double Vision, Eye Pain , Floaters, Photophobia, Recent Change in Vision, Other HENT: denies: No Symptoms, Difficult Swallowing, Ear Discharge, Ear Pain, Epistaxis, Gingival Bleeding, Hearing Loss, Mouth Swelling, Nasal Congestion, Ocular Prosthesis, Throat Pain, Toothache, Ringing in Ears, Other Neck: denies: No Symptoms, Decreased ROM, Lumps, Pain on Movement, Stiffness, Swollen Glands, Tenderness, Other Cardiovascular: denies: No Symptoms, Chest Pain, Edema, Palpitations, Shortness of Breath, Other Respiratory: denies: No Symptoms, Cough, Exercise Intolerance, Hemoptysis, Orthopnea, PND, Snoring, SOB, SOB on Exertion, Wheezing, Other Gastrointestinal: denies: No Symptoms, Abdominal Pain, Bloating, Constipation, Diarrhea, Dysphagia, Indigestion, Melena, Nausea, Rectal Bleeding, Vomiting, Vomiting Blood, Other Musculoskeletal: reports: Other (low left sided back pain, reproducible, muscular in origin) Physical Exam-GI Vital Signs: Vital Signs Temperature 98.1 F 05/31/17 08:00 Pulse Rate 68 05/31/17 14:45 Respiratory Rate 18 05/31/17 14:45 Blood Pressure 110/50 05/31/17 14:45 O2 Sat by Pulse Oximetry (%) 99 05/31/17 14:45 Constitutional: Yes: Well Nourished Eyes: Yes: Conjunctiva Clear HENT: Yes: Atraumatic Neck: Yes: Supple Cardiovascular: Yes: Regular Rate and Rhythm Respiratory: Yes: CTA Bilaterally Gastrointestinal Inspection: No: Distention ...Auscultate: Yes: Normoactive Bowel Sounds ...Palpate: Yes: Soft. No: Firm/Rigid, Guarding, Hepatomegaly, Mass, Pulsatile Mass, Splenomegaly, Tenderness, Tenderness, Epigastium Musculoskeletal: Yes: Back Pain, Muscle Pain (--lower back) Labs: INR, PTT INR 0.98 (0.82-1.09) 05/31/17 06:10 Problem List - Problems (1) Herniated disc Assessment/Plan: R> MRI of the back Code(s): [id number] - (2) Low back pain Assessment/Plan: secondary to neuropathy and muscular pain R> Toradol lidoderm patch consider neurology consult Code(s): M54.5 - LOW BACK PAIN (3) Diverticulosis Code(s): K57.90 - DVRTCLOS OF INTEST, PART UNSP, W/O PERF OR ABSCESS W/O BLEED
[2017-05-31] MEDS ORDERED: METOPROLOL TARTRATE 5 MG/5 ML VIAL IVPUSH SCH (22:00)
[2017-05-31] MEDS: HEPARIN NA (PORCINE) 5,000 UNITS/ML 1ML VIAL SQ SCH (22:13)
[2017-05-31] MEDS: PANTOPRAZOLE SODIUM 40 MG VIAL IVPUSH SCH (22:13)
[2017-05-31] MEDS: morphine CARPU-JECT 2 MG/1 ML DISP.SYRIN IVPUSH PRN (22:15)
[2017-06-01] MEDS: morphine CARPU-JECT 2 MG/1 ML DISP.SYRIN IVPUSH PRN ×5 (01:56→21:35)
[2017-06-01 08:50] LABS: BASOPHIL 0.6 % (0-2.0); EOSINOPHIL 1.9 % (0-4.5); MCH 31.3 pg (25.7-33.7); MCHC 32.9 g/dl (32.0-36.0); MEAN CELL VOLUME 95.2 fl (80-96); MEAN PLT VOLUME 7.2 fl (7.5-11.1); NEUTROPHILS 41.5 % (42.8-82.8); PLATELET COUNT 294 K/MM3 (134-434); RDW 14.5 % (11.6-15.6)
[2017-06-01 09:19] LABS: ALBUMIN 3.4 g/dl (3.4-5.0); ANION GAP 3 (8-16); CALCIUM 8.7 mg/dL (8.5-10.1); CO2 32 mmol/L (21-32); GLUCOSE,RANDOM 77 mg/dL (74-106)
[2017-06-01 09:30] LABS: ALK PHOS 79 U/L (45-117); BILIRUBIN,TOTAL 0.7 mg/dL (0.2-1.0); CREATININE 0.5 mg/dL (0.55-1.02); SGOT/AST 22 U/L (15-37); SGPT/ALT 28 U/L (12-78); TOT PROT 6.3 g/dl (6.4-8.2)
[2017-06-01] MEDS ORDERED: KETOROLAC TROMETHAMINE 30 MG/1 ML VIAL IVPUSH PRN (09:32)
--- NOTE | 2017-06-01 09:34 | PN ---
Progress Note, Physician Chief Complaint: LUQ abdominal pain, colitis History of Present Illness: NAD, OOB as tolerated seen by GI evaluation pending by Neurology MRI lumbar spine pending pain management still in pain on morphine and toradol - Current Medication List Current Medications: Active Medications Acetaminophen (Ofirmev Injection -) 1,000 mg IVPB Q6H PRN PRN Reason: FEVER OR PAIN Stop: 06/01/17 09:47 Last Admin: 05/31/17 19:33 Dose: 1,000 mg Heparin Sodium (Porcine) (Heparin -) 5,000 unit SQ BID [facility] Last Admin: 05/31/17 22:13 Dose: Not Given Lactated Ringer's (Lactated Ringers Solution) 1,000 mls @ 75 mls/hr IV ASDIR [facility] Last Admin: 05/31/17 17:04 Dose: 75 mls/hr Lidocaine (Lidoderm Patch -) 1 patch TP DAILY [facility] Lidocaine (Lidoderm Patch -) 1 patch TP DAILY [facility] Stop: 06/03/17 23:59 Metoprolol Tartrate (Lopressor Injection -) 5 mg IVPB BID PRN PRN Reason: HYPERTENSION Miscellaneous (Lidoderm Patch Removal) 1 each MC DAILY@2200 [facility] Morphine Sulfate (Morphine Injection -) 4 mg IVPUSH Q4H PRN PRN Reason: PAIN Last Admin: 06/01/17 06:38 Dose: 4 mg Ondansetron HCl (Zofran Injection) 4 mg IVPUSH Q8H PRN PRN Reason: NAUSEA Pantoprazole Sodium (Protonix Iv) 40 mg IVPUSH BID [facility] Last Admin: 05/31/17 22:13 Dose: 40 mg - Objective Vital Signs: Vital Signs Temperature 97.6 F 06/01/17 06:54 Pulse Rate 82 06/01/17 06:54 Respiratory Rate 20 06/01/17 06:54 Blood Pressure 132/68 06/01/17 06:54 O2 Sat by Pulse Oximetry (%) 99 05/31/17 21:00 Constitutional: Yes: Well Nourished, No Distress, Calm Cardiovascular: Yes: Regular Rate and Rhythm Respiratory: Yes: Regular Musculoskeletal: Yes: Back Pain (left CVA) Extremities: Yes: WNL Edema: No Peripheral Pulses WNL: Yes Neurological: Yes: Alert, Oriented Psychiatric: Yes: Alert, Oriented Labs: CBC, BMP 06/01/17 06:00 INR, PTT INR 0.98 (0.82-1.09) 05/31/17 06:10 Problem List - Problems (1) Colitis Assessment/Plan: -GI consult -CT scan reviewed -advance diet to clear liquids -IVF -stool sample for O&P, cdiff and culture Code(s): K52.9 - NONINFECTIVE GASTROENTERITIS AND COLITIS, UNSPECIFIED (2) Diverticulosis Code(s): K57.90 - DVRTCLOS OF INTEST, PART UNSP, W/O PERF OR ABSCESS W/O BLEED (3) Flank pain Assessment/Plan: Colitis? last colonoscopy in 2014 had left colon diverticulosis -MRI L spine pending Code(s): R10.9 - UNSPECIFIED ABDOMINAL PAIN (4) Low back pain Assessment/Plan: -mri lumbar spine -neurology consult Code(s): M54.5 - LOW BACK PAIN Assessment/Plan see problem list
--- NOTE | 2017-06-01 10:15 | CONSULT ---
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 She was seen by her PCP Dr Purcell at the office 1 day ago and thought to be rib pain. On morning of admission, she came in to work she took aleve, tylenol and percocet that she usually takes for her chronic right knee pain. An hour after the medication, she had an episode of loose stool and left flank pain and was brought in to ER by her fellow nurse. Has been getting pain control, does have history of back pain. Was told ultrasound didn't show kidney stones. MRI L spine was ordered by GI but contrast would not be needed, therefore changed to MRI L spine without contrast. Patient denies any dysuria, frequency, urgency or hematuria, prior diarrhea, chest pain, headache or dizziness. Also denies fever , chills, abdominal pain, nausea, vomit. Patient denies sick contacts or recent travel. - Past Medical History Cardiovascular: Yes: HTN, Hyperlipdemia, Other (SVT's with cardiac ablation in 2016) Gastrointestinal: Yes: Diverticulosis (in colonoscopy done in 2015 by Efrain Barros MD), GERD, Hemorrhoids. No: GI Bleed Reproductive: Yes: Other (Ovarian cysts) ...: No ...Para: 2 Musculoskeletal: Yes: Chronic low back pain, Other (lumbar spine disc herniations) Endocrine: Yes: Other (obesity) - Past Surgical History Past Surgical History: Yes: Tubal Ligation (sling procedure,) Additional Past Surgical History: BL knee meniscal tear repair, right shoulder rotator cuff repair, bladder lift, D&C - Smoking History Smoking history: Former smoker (31 pack years) Have you smoked in the past 12 months: No If you are a former smoker, when did you quit?: 10 YRS - Alcohol/Substance Use Hx Alcohol Use: Yes (socially) History of Substance Use: reports: None - Social History Usual Living Arrangement: Yes: With Spouse ADL: Independent History of Recent Travel: No Home Medications - Allergies Allergies/Adverse Reactions: Allergies Allergy/AdvReac Type Severity Reaction Status Date / Time No Known Allergies Allergy Verified 05/31/17 06:07 Home Medication List Medication Instructions Recorded Confirmed Type Cholecalciferol (Vitamin D3) 1,000 unit PO DAILY 02/26/17 05/31/17 History [Vitamin D3 -] Metoprolol Tartrate [Lopressor -] 25 mg PO BID 02/26/17 05/31/17 History Multivit-Min/FA/Lycopen/Lutein 1 tab PO DAILY 02/26/17 05/31/17 History [Centrum Silver Tablet] Aspirin [ASA -] 81 mg PO DAILY 03/09/17 05/31/17 History Oxycodone HCl/Acetaminophen 1 - 2 tab PO Q8H 03/09/17 05/31/17 History [Percocet 5-325 mg Tablet] Liraglutide [Saxenda] 3 mg SQ DAILY 05/11/17 05/31/17 History Sumatriptan Succinate [Imitrex -] 100 mg PO PRN PRN 05/11/17 05/31/17 History Lidocaine 5% Patch [Lidoderm Patch 1 patch TP DAILY PRN 05/12/17 05/31/17 History -] Active Medications Generic Name Dose Route Start Last Admin Trade Name Freq PRN Reason Stop Dose Admin Heparin Sodium (Porcine) 5,000 unit 05/31/17 22:00 06/01/17 10:20 Heparin - SQ 5,000 unit BID ALEJANDRO Administration Lactated Ringer's 1,000 mls @ 75 mls/hr 05/31/17 15:45 05/31/17 17:04 Lactated Ringers Solution IV 75 mls/hr ASDIR ALEJANDRO Administration Ketorolac Tromethamine 30 mg 06/01/17 09:32 Toradol Injection - IVPUSH 06/06/17 09:31 Q6H PRN PAIN Lidocaine 1 patch 06/01/17 10:00 06/01/17 10:20 Lidoderm Patch - TP 1 patch DAILY ALEJANDRO Administration Lidocaine 1 patch 06/01/17 10:00 06/01/17 10:20 Lidoderm Patch - TP 06/03/17 23:59 1 patch DAILY ALEJANDRO Administration Metoprolol Tartrate 5 mg 05/31/17 17:18 Lopressor Injection - IVPB BID PRN HYPERTENSION Miscellaneous 1 each 06/01/17 22:00 Lidoderm Patch Removal MC DAILY@2200 ALEJANDRO Miscellaneous 1 each 06/01/17 22:00 Lidoderm Patch Removal MC DAILY@2200 [facility] Morphine Sulfate 4 mg 05/31/17 17:18 06/01/17 06:38 Morphine Injection - IVPUSH 4 mg Q4H PRN Administration PAIN Ondansetron HCl 4 mg 05/31/17 15:46 Zofran Injection IVPUSH Q8H PRN NAUSEA Pantoprazole Sodium 40 mg 05/31/17 22:00 06/01/17 10:21 Protonix Iv IVPUSH 40 mg BID ALEJANDRO Administration Family Disease History - Family Disease History Family Disease History: Diabetes: Mother (HTN,HL,DM2,Obesity,basal cell carcinoma of the skin), Daughter (2 daughters healthy), Heart Disease: Father ( emphysema 2/2smoking, [place],pulmonayr embolism, alcohol abuse,Psoriasis), Mother, [place]: Mother, Respiratory: Father, Other: Father, Mother, Brother (2 brother's, 1 with alc abuse, psoriasis; 2nd brother: no significant hx) Other Family History: MGM-basal cell carcinoma,depression,dementia. MGF- drug abuse,depression,anxiety,PTSD (Vet). PGM-OA. PGF-NM,arrhythmia Review of Systems - Review of Systems Constitutional: reports: No Symptoms Eyes: reports: No Symptoms Neck: reports: No Symptoms Cardiovascular: reports: No Symptoms Respiratory: reports: No Symptoms Gastrointestinal: reports: Abdominal Pain, Diarrhea Genitourinary: reports: No Symptoms Breasts: reports: No Symptoms Reported Musculoskeletal: reports: No Symptoms Integumentary: reports: No Symptoms Neurological: reports: No Symptoms Endocrine: reports: No Symptoms Hematology/Lymphatic: reports: No Symptoms Psychiatric: reports: No Symptoms Pain Intensity: 5 Physical Examination Vital Signs Temperature 98.1 F 06/01/17 10:03 Pulse Rate 80 06/01/17 10:03 Respiratory Rate 20 06/01/17 10:03 Blood Pressure 124/72 06/01/17 10:03 O2 Sat by Pulse Oximetry (%) 99 05/31/17 21:00 Constitutional: Yes: Well Nourished, No Distress, Calm Cardiovascular: Yes: Regular Rate and Rhythm Respiratory: Yes: Regular Gastrointestinal: Yes: Soft, Abdomen, Obese, Hyperactive Bowel Sounds Renal/: Yes: CVA Tenderness - Left Edema: No Peripheral Pulses WNL: Yes Neurological: Yes: Alert, Oriented Psychiatric: Yes: Alert, Oriented Imaging - Results Cat Scan: Report Reviewed CBCD WBC 7.0 K/mm3 (4.0-10.0) 06/01/17 06:00 RBC 4.15 M/mm3 (3.60-5.2) 06/01/17 06:00 Hgb 13.0 GM/dL (10.7-15.3) 06/01/17 06:00 Hct 39.5 % (32.4-45.2) 06/01/17 06:00 MCV 95.2 fl (80-96) 06/01/17 06:00 MCHC 32.9 g/dl (32.0-36.0) 06/01/17 06:00 RDW 14.5 % (11.6-15.6) 06/01/17 06:00 Plt Count 294 K/MM3 (134-434) 06/01/17 06:00 MPV 7.2 fl (7.5-11.1) L 06/01/17 06:00 CMP Sodium 141 mmol/L (136-145) 06/01/17 06:00 Potassium 4.0 mmol/L (3.5-5.1) 06/01/17 06:00 Chloride 106 mmol/L (98-107) 06/01/17 06:00 Carbon Dioxide 32 mmol/L (21-32) 06/01/17 06:00 Anion Gap 3 (8-16) L 06/01/17 06:00 BUN 14 mg/dL (7-18) D 06/01/17 06:00 Creatinine 0.5 mg/dL (0.55-1.02) L 06/01/17 06:00 Creat Clearance w eGFR > 60 (>60) 06/01/17 06:00 Calcium 8.7 mg/dL (8.5-10.1) 06/01/17 06:00 Total Bilirubin 0.7 mg/dL (0.2-1.0) D 06/01/17 06:00 AST 22 U/L (15-37) D 06/01/17 06:00 ALT 28 U/L (12-78) 06/01/17 06:00 Alkaline Phosphatase 79 U/L (45-117) 06/01/17 06:00 Total Protein 6.3 g/dl (6.4-8.2) L 06/01/17 06:00 Albumin 3.4 g/dl (3.4-5.0) 06/01/17 06:00 Plan 57 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 She was seen by her PCP Dr Purcell at the office 1 day ago and thought to be rib pain. On morning of admission, she came in to work she took aleve, tylenol and percocet that she usually takes for her chronic right knee pain. An hour after the medication, she had an episode of loose stool and left flank pain and was brought in to ER by her fellow nurse. Has been getting pain control, does have history of back pain. MRI L spine was ordered by GI but contrast would not be needed, therefore changed to MRI L spine without contrast. GI followup, told it was not colitis Has been NPO Follow up stool sample Monitor blood pressure Continue anti-HTN medication, goal < 140/90 Monitor Afib Lidocaine patch prescribed Can continue Zofran Bed rest for now DVT ppx
[2017-06-01] MEDS: HEPARIN NA (PORCINE) 5,000 UNITS/ML 1ML VIAL SQ SCH ×2 (10:20→21:35)
[2017-06-01] MEDS: LIDOCAINE 5% TOPICAL PATCH TP SCH ×2 (10:20)
[2017-06-01] MEDS: PANTOPRAZOLE SODIUM 40 MG VIAL IVPUSH SCH ×2 (10:21→21:34)
[2017-06-01] MEDS ORDERED: ACETAMINOPHEN 325 MG TABLET (FP) PO PRN (12:45)
[2017-06-01] MEDS: LACTATED RINGERS SOLUTION 1,000 ML IV SCH (18:04)
[2017-06-01] MEDS ORDERED: LIDOCAINE PATCH REMOVAL MC SCH ×2 (22:00)
[2017-06-02] MEDS: KETOROLAC TROMETHAMINE 30 MG/1 ML VIAL IVPUSH PRN ×2 (01:17→07:59)
--- NOTE | 2017-06-02 07:56 | PN ---
Progress Note, Physician - Current Medication List Current Medications: Active Medications Acetaminophen (Tylenol -) 650 mg PO Q6H PRN PRN Reason: FEVER OR PAIN Last Admin: 06/01/17 13:06 Dose: 650 mg Heparin Sodium (Porcine) (Heparin -) 5,000 unit SQ BID [facility] Last Admin: 06/01/17 21:35 Dose: 5,000 unit Lactated Ringer's (Lactated Ringers Solution) 1,000 mls @ 75 mls/hr IV ASDIR [facility] Last Admin: 06/01/17 18:04 Dose: Not Given Ketorolac Tromethamine (Toradol Injection -) 15 mg IVPUSH Q6H PRN PRN Reason: PAIN Stop: 06/06/17 09:31 Last Admin: 06/02/17 01:17 Dose: 15 mg Lidocaine (Lidoderm Patch -) 1 patch TP DAILY [facility] Last Admin: 06/01/17 10:20 Dose: 1 patch Lidocaine (Lidoderm Patch -) 1 patch TP DAILY [facility] Stop: 06/03/17 23:59 Last Admin: 06/01/17 10:20 Dose: 1 patch Metoprolol Tartrate (Lopressor Injection -) 5 mg IVPB BID PRN PRN Reason: HYPERTENSION Miscellaneous (Lidoderm Patch Removal) 1 each MC DAILY@2200 [facility] Last Admin: 06/01/17 21:35 Dose: 1 each Miscellaneous (Lidoderm Patch Removal) 1 each MC DAILY@2200 [facility] Last Admin: 06/01/17 21:35 Dose: 1 each Morphine Sulfate (Morphine Injection -) 4 mg IVPUSH Q4H PRN PRN Reason: PAIN Last Admin: 06/01/17 21:35 Dose: 4 mg Ondansetron HCl (Zofran Injection) 4 mg IVPUSH Q8H PRN PRN Reason: NAUSEA Pantoprazole Sodium (Protonix Iv) 40 mg IVPUSH BID [facility] Last Admin: 06/01/17 21:34 Dose: 40 mg - Objective Vital Signs: Vital Signs Temperature 98.9 F 06/02/17 00:33 Pulse Rate 76 06/02/17 00:33 Respiratory Rate 20 06/02/17 00:33 Blood Pressure 126/59 06/02/17 00:33 O2 Sat by Pulse Oximetry (%) 99 06/01/17 21:00 Labs: CBC, BMP 06/01/17 06:00 06/01/17 06:00 INR, PTT INR 0.98 (0.82-1.09) 05/31/17 06:10
--- NOTE | 2017-06-02 09:24 | DS ---
Physical Examination Vital Signs: Vital Signs Temperature 98.9 F 06/02/17 00:33 Pulse Rate 76 06/02/17 00:33 Respiratory Rate 20 06/02/17 00:33 Blood Pressure 126/59 06/02/17 00:33 O2 Sat by Pulse Oximetry (%) 99 06/01/17 21:00 Labs: CBC, BMP 06/01/17 06:00 06/01/17 06:00 Discharge Summary Reason For Visit: FLANK PAIN Current Active Problems Colitis (Acute) Diverticulosis (Acute) Flank pain (Acute) Herniated disc (Acute) Low back pain (Acute) Condition: Improved - Instructions Referrals: Evelina Purcell MD [Primary Care Provider] - Disposition: HOME - Home Medications Comprehensive Discharge Medication List: Ambulatory Orders Cholecalciferol (Vitamin D3) [Vitamin D3 -] 1,000 unit PO DAILY 02/26/17 Metoprolol Tartrate [Lopressor -] 25 mg PO BID 02/26/17 Multivit-Min/FA/Lycopen/Lutein [Centrum Silver Tablet] 1 tab PO DAILY 02/26/17 Aspirin [ASA -] 81 mg PO DAILY 03/09/17 Oxycodone HCl/Acetaminophen [Percocet 5-325 mg Tablet] 1 - 2 tab PO Q8H Sumatriptan Succinate [Imitrex -] 100 mg PO PRN PRN 05/11/17 Lidocaine 5% Patch [Lidoderm -] 1 patch TP DAILY PRN 05/12/17
[2017-06-02] MEDS: PANTOPRAZOLE SODIUM 40 MG VIAL IVPUSH SCH (09:55)
[2017-06-02] MEDS: LIDOCAINE 5% TOPICAL PATCH TP SCH ×2 (09:55)
[2017-06-02] MEDS: HEPARIN NA (PORCINE) 5,000 UNITS/ML 1ML VIAL SQ SCH (09:56)
--- NOTE | 2017-06-02 09:56 | PN ---
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 She was seen by her PCP Dr Purcell at the office 3 day ago and thought to be rib pain. On morning of admission, she came in to work she took aleve, tylenol and percocet that she usually takes for her chronic right knee pain. An hour after the medication, she had an episode of loose stool and left flank pain and was brought in to ER by her fellow nurse. Has been getting pain control, does have history of back pain. Was told ultrasound didn't show kidney stones. MRI L spine was completed and reviewed report and images in detail. Discussed with patient and in comparison with MRI from 2012 there is increased arthropathy, L4/ L5 mild to moderae canal stenosis and disc bulging. SHe is feeling better today after pain controlled. Patient denies any dysuria, frequency, urgency or hematuria, prior diarrhea, chest pain, headache or dizziness. Also denies fever , chills, abdominal pain, nausea, vomit. We discussed physcial therapy which she has not had of her back in many years. Active Medications Acetaminophen (Tylenol -) 650 mg PO Q6H PRN PRN Reason: FEVER OR PAIN Last Admin: 06/01/17 13:06 Dose: 650 mg Heparin Sodium (Porcine) (Heparin -) 5,000 unit SQ BID [facility] Last Admin: 06/01/17 21:35 Dose: 5,000 unit Lactated Ringer's (Lactated Ringers Solution) 1,000 mls @ 75 mls/hr IV ASDIR [facility] Last Admin: 06/01/17 18:04 Dose: Not Given Ketorolac Tromethamine (Toradol Injection -) 15 mg IVPUSH Q6H PRN PRN Reason: PAIN Stop: 06/06/17 09:31 Last Admin: 06/02/17 07:59 Dose: 15 mg Lidocaine (Lidoderm Patch -) 1 patch TP DAILY [facility] Last Admin: 06/01/17 10:20 Dose: 1 patch Lidocaine (Lidoderm Patch -) 1 patch TP DAILY [facility] Stop: 06/03/17 23:59 Last Admin: 06/01/17 10:20 Dose: 1 patch Metoprolol Tartrate (Lopressor Injection -) 5 mg IVPB BID PRN PRN Reason: HYPERTENSION Miscellaneous (Lidoderm Patch Removal) 1 each MC DAILY@2200 [facility] Last Admin: 06/01/17 21:35 Dose: 1 each Miscellaneous (Lidoderm Patch Removal) 1 each DAILY@2200 ALEJANDRO Last Admin: 06/01/17 21:35 Dose: 1 each Morphine Sulfate (Morphine Injection -) 4 mg IVPUSH Q4H PRN PRN Reason: PAIN Last Admin: 06/01/17 21:35 Dose: 4 mg Ondansetron HCl (Zofran Injection) 4 mg IVPUSH Q8H PRN PRN Reason: NAUSEA Pantoprazole Sodium (Protonix Iv) 40 mg IVPUSH BID [facility] Last Admin: 06/01/17 21:34 Dose: 40 mg Physical Examination Vital Signs Temperature 98.9 F 06/02/17 00:33 Pulse Rate 76 06/02/17 00:33 Respiratory Rate 20 06/02/17 00:33 Blood Pressure 126/59 06/02/17 00:33 O2 Sat by Pulse Oximetry (%) 99 06/01/17 21:00 Constitutional: Yes: Well Nourished, No Distress, Calm Cardiovascular: Yes: Regular Rate and Rhythm Respiratory: Yes: Regular Gastrointestinal: Yes: Soft, Abdomen, Obese, Hyperactive Bowel Sounds Renal/: Yes: CVA Tenderness - Left Edema: No Peripheral Pulses WNL: Yes Neurological: Yes: Alert, Oriented Psychiatric: Yes: Alert, Oriented Imaging - Results Cat Scan: Report Reviewed CBCD WBC 7.0 K/mm3 (4.0-10.0) 06/01/17 06:00 RBC 4.15 M/mm3 (3.60-5.2) 06/01/17 06:00 Hgb 13.0 GM/dL (10.7-15.3) 06/01/17 06:00 Hct 39.5 % (32.4-45.2) 06/01/17 06:00 MCV 95.2 fl (80-96) 06/01/17 06:00 MCHC 32.9 g/dl (32.0-36.0) 06/01/17 06:00 RDW 14.5 % (11.6-15.6) 06/01/17 06:00 Plt Count 294 K/MM3 (134-434) 06/01/17 06:00 MPV 7.2 fl (7.5-11.1) L 06/01/17 06:00 CMP Sodium 141 mmol/L (136-145) 06/01/17 06:00 Potassium 4.0 mmol/L (3.5-5.1) 06/01/17 06:00 Chloride 106 mmol/L (98-107) 06/01/17 06:00 Carbon Dioxide 32 mmol/L (21-32) 06/01/17 06:00 Anion Gap 3 (8-16) L 06/01/17 06:00 BUN 14 mg/dL (7-18) D 06/01/17 06:00 Creatinine 0.5 mg/dL (0.55-1.02) L 06/01/17 06:00 Creat Clearance w eGFR > 60 (>60) 06/01/17 06:00 Calcium 8.7 mg/dL (8.5-10.1) 06/01/17 06:00 Total Bilirubin 0.7 mg/dL (0.2-1.0) D 06/01/17 06:00 AST 22 U/L (15-37) D 06/01/17 06:00 ALT 28 U/L (12-78) 06/01/17 06:00 Alkaline Phosphatase 79 U/L (45-117) 06/01/17 06:00 Total Protein 6.3 g/dl (6.4-8.2) L 06/01/17 06:00 Albumin 3.4 g/dl (3.4-5.0) 06/01/17 06:00 Plan 57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 She was seen by her PCP Dr Purcell at the office 1 day ago and thought to be rib pain. On morning of admission, she came in to work she took aleve, tylenol and percocet that she usually takes for her chronic right knee pain. An hour after the medication, she had an episode of loose stool and left flank pain and was brought in to ER by her fellow nurse. Has been getting pain control, does have history of back pain. MRI L spine reviewed in detail Physical therapy may be of benefit Does not appear to be surgical at this point Also discussed injections as possible treatment if needed Stable at this time with good pain control Monitor blood pressure Continue anti-HTN medication, goal < 140/90 Monitor Afib Lidocaine patch prescribed Can continue Zofran Likely for discharge, discussed outpatient follow up
[2017-06-02 12:26] VITALS: BP 102/69; PULSE 71; TEMP 98.3
== END 2017-06-02 11:23 | disposition home or self-care (01) | DRG 392 ==
LOC: JER 05:59 → JERBED 13:43 → J8W 15:47
PROVIDERS: ADMIT Family Medicine; ATTEND Family Medicine
DX: K52.9 Noninfective gastroenteritis and colitis, unspecified (principal); K57.90 Diverticulosis of intestine, part unspecified, without perforation or abscess without bleeding; R10.9 Unspecified abdominal pain; M54.5 Low back pain; R10.32 Left lower quadrant pain; Z87.891 Personal history of nicotine dependence; E78.5 Hyperlipidemia, unspecified
CPT/HCPCS: 36415; 71020-TC; 71101-TC; 72148-TC; 74176; 74177-TC; 80053; 81003; 81015; 83605; 85025; 85610; 87086; 87493; 99284-25; J1644; Q9967

== ENCOUNTER 2017-10-30 10:30 | Day surgery (SDC) | payer OTHER ==
--- NOTE | 2017-10-30 07:33 | HP ---
Admitting History and Physical - Admission Chief Complaint: right knee osteoarthritis x years History of Present Illness: 57 year old female presents in regard to her right knee. Longstanding history of right knee osteoarthritis. Patient complains of pain, limited ROM, difficulty ambulating especially climbing stairs and difficulty completing activities of daily living. Patient has failed all conservative treatment measures including PO medication, injections, activity modification and exercise program. At this point, patient would like to proceed with a right partial knee replacement, MAKOplasty. History Source: Patient - Past Medical History FIBER PICKER: Yes: Migraine Cardiovascular: Yes: HTN, Hyperlipdemia, Other (SVT's with cardiac ablation in 2016) Gastrointestinal: Yes: Diverticulosis (in colonoscopy done in 2014 by Efrain Barros MD), GERD, Hemorrhoids. No: GI Bleed ...LMP Comment: 2013 ...: No Musculoskeletal: Yes: Chronic low back pain, Other (lumbar spine disc herniations) Endocrine: Yes: Diabetes Mellitus, Other (obesity) - Past Surgical History Past Surgical History: Yes: Tubal Ligation (sling procedure,) Additional Past Surgical History: See written history & physical for additional surgical history. - Smoking History Smoking history: Former smoker Have you smoked in the past 12 months: No If you are a former smoker, when did you quit?: 10 YRS - Alcohol/Substance Use Hx Alcohol Use: Yes (socially) History of Substance Use: reports: None - Social History ADL: Independent History of Recent Travel: No Home Medications - Allergies Allergies/Adverse Reactions: Allergies Allergy/AdvReac Type Severity Reaction Status Date / Time No Known Drug Allergies Allergy Verified 10/23/17 12:08 - Home Medications Home Medications: Ambulatory Orders Cholecalciferol (Vitamin D3) [Vitamin D3 -] 1,000 unit PO DAILY 02/26/17 Metoprolol Tartrate [Lopressor -] 25 mg PO BID 02/26/17 Multivit-Min/FA/Lycopen/Lutein [Centrum Silver Tablet] 1 tab PO DAILY 02/26/17 Aspirin [ASA -] 81 mg PO DAILY 03/09/17 Oxycodone HCl/Acetaminophen [Percocet 5-325 mg Tablet] 1 - 2 tab PO Q8H Sumatriptan Succinate [Imitrex -] 100 mg PO PRN PRN 05/11/17 Lidocaine 5% Patch [Lidoderm -] 1 patch TP DAILY PRN 05/12/17 Liraglutide [Saxenda] 3 mg SQ ACDIN 10/23/17 Family Disease History - Family Disease History Family Disease History: Diabetes: Mother (HTN,HL,DM2,Obesity,basal cell carcinoma of the skin), Daughter (2 daughters healthy), Heart Disease: Father ( emphysema 2/2smoking, [place],pulmonayr embolism, alcohol abuse,Psoriasis), Mother, [place]: Mother, Respiratory: Father, Other: Father, Mother, Brother (2 brother's, 1 with alc abuse, psoriasis; 2nd brother: no significant hx) Review of Systems - Review of Systems Musculoskeletal: reports: Crepitus (right knee), Decreased ROM (right knee), Joint Pain (right knee), Joint Swelling (right knee) Physical Examination Constitutional: Yes: Well Nourished, No Distress Eyes: Yes: Conjunctiva Clear HENT: Yes: Atraumatic, Normocephalic Neck: Yes: Supple Cardiovascular: Yes: Regular Rate and Rhythm Respiratory: Yes: Regular Gastrointestinal: Yes: Soft ...Rectal Exam: Yes: Deferred Musculoskeletal: Yes: Joint Stiffness (right knee), Joint Swelling (right knee) Assessment/Plan 57 year old female presents in regard to her right knee. Longstanding history of right knee osteoarthritis. Patient complains of pain, limited ROM, difficulty ambulating especially climbing stairs and difficulty completing activities of daily living. Patient has failed all conservative treatment measures including PO medication, injections, activity modification and exercise program. Pros, cons, risks, benefits and alternatives of a right partial knee replacement, MAKOplasty was discussed in detail with the patient. Patient confirms her understanding. At this point, patient consents to proceed with a right partial knee replacement, MAKOplasty.
[~2017-10-30 10:30] MED LIST: CEFAZOLIN 2 GM/D5W 2 GM/50 ML ML IVPB ONE; CELECOXIB 200 MG CAPSULE PO ONE; GABAPENTIN 300 MG CAPSULE (FP) PO ONE; PANTOPRAZOLE 40 MG TABLET (FP) PO ONE; ROPIVICAINE 0.2%/MORPH PF/KETOROLAC - 51ML DISP.SYRINGE IA ONE; TRANEXAMIC ACID 1000 MG/10 ML VIAL IVPUSH ONE; oxyCODONE HCL 10 MG SUSTAINED ACTING TABLET PO ONE
[2017-10-30] MEDS ORDERED: THROMBIN (BOVINE) 5,000 UNIT VIAL TP ONE (10:38)
[2017-10-30] MEDS ORDERED: VANCOMYCIN 1,000 MG VIAL (RESTRICTED TO ID ONLY) ONE (10:38)
[2017-10-30] MEDS ORDERED: GELATIN, ABSORBABLE 100 EACH SPONGE TP ONE (10:38)
[2017-10-30] MEDS ORDERED: ceFAZolin SODIUM 1 GM VIAL ONE ×2 (10:38→12:44)
[2017-10-30] MEDS ORDERED: TRANEXAMIC ACID 1000 MG/10 ML VIAL ONE ×2 (10:39→12:44)
[2017-10-30] MEDS ORDERED: ROPIVICAINE 0.2%/MORPH PF/KETOROLAC - 51ML DISP.SYRINGE IA ONE ×3 (10:42→15:50)
[2017-10-30] MEDS ORDERED: PANTOPRAZOLE 40 MG TABLET (FP) ONE (10:47)
[2017-10-30] MEDS ORDERED: oxyCODONE HCL 10 MG SUSTAINED ACTING TABLET ONE (10:47)
[2017-10-30] MEDS ORDERED: GABAPENTIN 300 MG CAPSULE (FP) ONE (10:48)
[2017-10-30] MEDS ORDERED: CELECOXIB 200 MG CAPSULE ONE (10:48)
[2017-10-30 11:01] VITALS: BMI 33.6
[2017-10-30] MEDS ORDERED: MIDAZOLAM HCL 2 MG/2 ML SINGLE DOSE VIAL ONE (12:04)
[2017-10-30] MEDS ORDERED: PROPOFOL 20 ML ONE ×6 (12:37→15:29)
[2017-10-30] MEDS ORDERED: DEXAMETHASONE SOD PHOSPHATE 4 MG/1 ML VIAL ONE (12:44)
[2017-10-30] MEDS ORDERED: ONDANSETRON 4 MG/2 ML VIAL ONE ×2 (12:44→17:46)
[2017-10-30] MEDS ORDERED: VANCOMYCIN 1,000 MG VIAL (RESTRICTED TO ID ONLY) IVPB ONE ×2 (13:26→15:29)
[2017-10-30] MEDS ORDERED: TRANEXAMIC ACID 1000 MG/10 ML VIAL IVPB ONE ×2 (13:30→15:29)
[2017-10-30] MEDS ORDERED: oxyCODONE HCL 5 MG TABLET PO PRN (16:21)
[2017-10-30] MEDS ORDERED: PROMETHAZINE HCL 25 MG/1 ML VIAL IVPUSH PRN (16:21)
[2017-10-30] MEDS ORDERED: ONDANSETRON 4 MG/2 ML VIAL IVPUSH PRN ×2 (16:21→16:29)
[2017-10-30] MEDS ORDERED: SUMAtriptan SUCCINATE 50 MG TABLET PO PRN (16:28)
--- NOTE | 2017-10-30 16:28 | OP ---
Operative Note - Note: Operative Date: 10/30/17 Pre-Operative Diagnosis: Right knee medial compartment OA Operation: Right knee medial MAKOplasty partial knee replacement Surgeon: Alexis Vegas Entry Level Project Engineer: Isaura Marte Anesthesia: Spinal Estimated Blood Loss (mls): 50
[2017-10-30] MEDS ORDERED: MAG HYDROX/AL HYDROX/SIMETH 30 ML UNIT-DOSE CUP PO PRN (16:29)
[2017-10-30] MEDS ORDERED: LIRAGLUTIDE 3 MG SQ SCH (16:30)
[2017-10-30] MEDS ORDERED: LACTATED RINGERS SOLUTION 1,000 ML IV SCH ×2 (16:30)
[2017-10-30] MEDS ORDERED: ACETAMINOPHEN 1000 MG/100 ML VIAL (NON FORMULARY) IVPB ONE ×2 (16:35→16:48)
[2017-10-30] MEDS ORDERED: MELATONIN 5 MG TABLETS PO PRN (16:37)
[2017-10-30] MEDS ORDERED: traMADol HCL 50 MG TABLET PO ONE (16:42)
[2017-10-30] MEDS ORDERED: ACETAMINOPHEN INJECTION 100 ML IVPB ONE (16:43)
[2017-10-30] MEDS ORDERED: KETOROLAC TROMETHAMINE 30 MG/1 ML VIAL ONE (16:43)
[2017-10-30] MEDS ORDERED: traMADol HCL 50 MG TABLET ONE (16:44)
[2017-10-30] MEDS ORDERED: KETOROLAC TROMETHAMINE 30 MG/1 ML VIAL IVPUSH ONE (16:46)
[2017-10-30] MEDS ORDERED: ONDANSETRON 4 MG/2 ML VIAL IVPUSH ONE (17:49)
[2017-10-30] MEDS: SENNOSIDES/DOCUSATE COMBO (SENNA PLUS) TABLET (UD) PO SCH (21:31)
[2017-10-30] MEDS: GABAPENTIN 300 MG CAPSULE (FP) PO SCH (21:32)
[2017-10-30] MEDS: ACETAMINOPHEN 325 MG TABLET (FP) PO SCH (21:32)
[2017-10-30] MEDS: CELECOXIB 200 MG CAPSULE PO SCH (21:32)
[2017-10-30] MEDS: METOPROLOL TARTRATE 25 MG TABLET (FP) PO SCH (21:32)
[2017-10-30] MEDS: CEFAZOLIN 2 GM/D5W 2 GM/50 ML ML IVPB SCH (21:33)
[2017-10-30] MEDS: ASCORBIC ACID 500 MG TABLET (FP) PO SCH (21:33)
[2017-10-30] MEDS: oxyCODONE HCL 10 MG SUSTAINED ACTING TABLET PO SCH (21:34)
[2017-10-30] MEDS ORDERED: GABAPENTIN 300 MG CAPSULE (FP) PO SCH (22:00)
--- NOTE | 2017-10-30 22:04 | SPEC ---
DATE OF OPERATION: 10/30/2017 PREOPERATIVE DIAGNOSIS: Right knee medial compartment osteoarthritis. POSTOPERATIVE DIAGNOSIS: Right knee medial compartment osteoarthritis. PROCEDURE: Right knee medial MAKOplasty, partial knee replacement with robotic navigation. ATTENDING: Eleni Cohen MD SIEVE MAKER: RICHARD Flores ANESTHESIA: Spinal plus sedation. ESTIMATED BLOOD LOSS: 50 mL COMPLICATIONS: None. SPECIMENS: None. DISPOSITION: The patient was transferred to the PACU in stable condition. IMPLANTS USED: DINAH size 5 femoral and tibial components with 10-mm polyethylene component. INDICATIONS: This is a 57-year-old female who is a long-term patient of [facility], with a diagnosis of right knee osteoarthritis. We have been treating this conservatively for quite some time, and she has continued to have severe pain and a varus deformity. The patient insisted that all her pain was localized to the medial side, and over an extended period of time, she sought to see whether she did have pain in other areas, but it all came back to the medial joint line. For this reason, we decided to proceed with a partial knee replacement rather than a total knee replacement after a long discussion. The risks, benefits, and alternatives to the surgery were explained to the patient, and she elected to proceed with the MAKOplasty robotic partial knee replacement. The patient was seen and examined by Dr. Cohen and diagnosed with isolated medial compartment osteoarthritis. The knee pain was localized to the medial joint line and there were no complaints of pain in other areas of the knee. Because of failure of initial conservative treatment, the patient was indicated for a partial knee replacement. The risks, benefits and alternatives of the procedure were explained in great detail and the patient elected to proceed with surgery. These risks included, but are not limited to, anesthesia risks, scarring, instability, stiffness, infection, pulmonary embolus, deep vein thrombosis, intraoperative fracture, intraoperative neurovascular injury, problems with wound healing, failed procedure, persistent pain, nerve injury, possibility of lower limb numbness and weakness, the need for possible subsequent salvage surgeries, persistent limp, disability and . On the day of surgery the patient was taken to the operating room and placed on the OR table. Spinal anesthesia was administered by the anesthesiologist. The patient was then positioned supine on the table and all bony prominences were padded. A nonsterile tourniquet was placed on the proximal thigh of the operative leg. The knee was then prepped and draped in the usual sterile fashion and intravenous antibiotics were given for infection prophylaxis. A surgical time out was then performed with the team and the patient's identify, procedure, side, availability of implants and the administration of antibiotics was confirmed. With the knee flexed, an 8 cm incision was made just slightly medial to the midline and carried down through the subcutaneous fat to the underlying retinaculum. Electrocautery was used to achieve hemostasis. A limited medial parapatellar arthrotomy was performed. This was followed by a subperiosteal dissection of the tissue off the proximal medial tibia. A portion of fat pad was removed from under the patellar tendon to improve visualization and a small portion of fat was excised off the distal supracondylar femur. The knee was then flexed further and the anterior horn of the medial meniscus was released. Grade 4 changes were noted diffusely throughout the medial compartment. The lateral compartment appeared to be in good condition. Femoral and tibial checkpoints were then placed in the appropriate location using a mallet. Two parallel bicortical self-drilling pins were placed in the proximal tibia after making stab incisions and bluntly dissecting down to bone. These were positioned approximately 10 cm distal to the tibial tubercle. Two pins were then placed in the proximal femur using the same technique. These were located approximately 10 cm proximal to the superior pole of the patella. The [employer] navigation arrays were then attached to both the femoral and tibial pins and the lower extremity was then registered to the robotic navigation device using various joint movements, as well as inputting approximately 50 checkpoints. The knee was then taken through a full range of motion with a corrective valgus force applied. Alignment in varus/valgus was measured at 0, 30, 60, 90 and 120 degrees of flexion to determine soft tissue balance in all of these positions. The navigation device showed appropriate tracking of the virtual components on the screen, as well as a graphic representation of the soft tissue balance. The components were repositioned virtually using the software until optimal soft tissue balance was achieved. Once this was accomplished, the final plan was saved and sent to the robot. Retractors were then placed around the distal femur. The robot was brought into the sterile field and registered with the navigation device. The robotic arm with a jensen was then used to remove the appropriate amount of bone from the femur and tibia as per the saved software plan. The knee was then irrigated. Trial components were placed and the knee was taken through a full range of motion to assess soft tissue balance and alignment. The tracking and range of motion were found to be excellent and the soft tissue balance was optimal and according to plan. All trial components were then removed and an Esmarch bandage was used to exsanguinate the leg. The tourniquet was inflated in preparation for cementing. All bony surfaces were cleaned with pulsatile lavage and dried. Bone cement was then prepared on the back table and final components were cemented in place in the usual fashion. Extruded cement was removed. Once the cement had hardened, the knee was taken through a full range of motion to assess stability, balance and patellar tracking. These were found to be optimal. The trial polyethylene was exchanged for a final implant. Medial and inferior osteophytes were debrided off the patella (patelloplasty). The navigation arrays and Aislinn pins were removed from the femur and tibia. All wounds were then thoroughly irrigated with normal saline. A periarticular injection was used to locally infiltrate the capsular tissues surrounding the implant and prosthesis. A 1 Vicryl and 0 V-Jevon 180 barbed sutures were used to close the arthrotomy. 2-0 Vicryl sutures were used in the subcutaneous tissues. The skin was closed using both 3-0 V-Jevon 90 suture in a running subcuticular fashion and Dermabond skin adhesive. 4-0 undyed Vicryl and Dermabond skin adhesive was used to close the stab incisions made for the navigation pins. Once this was completed, sterile Aquacel dressings were applied to each incision site. A compressive dressing was applied. The tourniquet was then deflated and the patient was awakened and went to the PACU in stable condition. ADDENDUM: After final components were placed, a 3-minute dilute Betadine lavage was performed. Following this, the wound was thoroughly irrigated with normal saline, and wound closure was begun. ELENI COHEN M.D. [id number]
[2017-10-30] MEDS: traMADol HCL 50 MG TABLET PO SCH (23:15)
[2017-10-30] MEDS: oxyCODONE HCL 5 MG TABLET PO PRN (23:16)
[2017-10-30] MEDS: KETOROLAC TROMETHAMINE 30 MG/1 ML VIAL IVPUSH SCH (23:20)
[2017-10-31] MEDS ORDERED: DEXAMETHASONE SOD PHOSPHATE 10 MG/1 ML VIAL IVPB ONE
[2017-10-31] MEDS: oxyCODONE HCL 5 MG TABLET PO PRN ×4 (01:57→12:04)
[2017-10-31] MEDS: CEFAZOLIN 2 GM/D5W 2 GM/50 ML ML IVPB SCH (04:15)
[2017-10-31] MEDS: ACETAMINOPHEN 325 MG TABLET (FP) PO SCH ×3 (04:16→09:43)
[2017-10-31] MEDS: KETOROLAC TROMETHAMINE 30 MG/1 ML VIAL IVPUSH SCH ×3 (04:17→12:05)
[2017-10-31] MEDS: traMADol HCL 50 MG TABLET PO SCH ×3 (04:18→12:04)
[2017-10-31 05:53] VITALS: PULSE 77
[2017-10-31] MEDS ORDERED: ASPIRIN 325 MG TABLET PO SCH (08:00)
[2017-10-31 08:41] LABS: HEMATOCRIT 34.9 % (32.4-45.2); HEMOGLOBIN 12.2 GM/dl (10.7-15.3); MCH 33.4 pg (25.7-33.7); MEAN CELL VOLUME 95.4 fl (80-96); MEAN PLT VOLUME 7.3 fl (7.5-11.1); PLATELET COUNT 308 K/MM3 (134-434); RBC 3.66 M/mm3 (3.60-5.2); RDW 13.9 % (11.6-15.6); WHITE BLOOD COUNT 16.7 K/mm3 (4.0-10.8)
[2017-10-31 08:44] LABS: ANION GAP 5 (8-16); BLOOD UREA NITROGEN 12 mg/dl (7-18); CALCIUM 8.5 mg/dl (8.4-10.2); CHLORIDE 104 mmol/L (98-107); CO2 23 mmol/L (22-28); GLUCOSE,RANDOM 136 mg/dl (74-106); POTASSIUM 3.7 mmol/L (3.5-5.1); SODIUM 132 mmol/L (136-145)
[2017-10-31 09:21] LABS: CREATININE < 0.8 mg/dl (0.6-1.3)
[2017-10-31 09:36] VITALS: BP 139/72; TEMP 97.7
[2017-10-31] MEDS: METOPROLOL TARTRATE 25 MG TABLET (FP) PO SCH (09:43)
[2017-10-31] MEDS: ASCORBIC ACID 500 MG TABLET (FP) PO SCH (09:43)
[2017-10-31] MEDS: oxyCODONE HCL 10 MG SUSTAINED ACTING TABLET PO SCH (09:43)
[2017-10-31] MEDS: GABAPENTIN 300 MG CAPSULE (FP) PO SCH (09:43)
[2017-10-31] MEDS: CELECOXIB 200 MG CAPSULE PO SCH (09:43)
[2017-10-31] MEDS: SENNOSIDES/DOCUSATE COMBO (SENNA PLUS) TABLET (UD) PO SCH (09:43)
[2017-10-31] MEDS ORDERED: PANTOPRAZOLE 40 MG TABLET (FP) PO SCH (10:00)
[2017-10-31] MEDS ORDERED: MULTIVITAMINS (DAILY MVI) TABLET (FP) PO SCH (10:00)
== END 2017-10-31 12:45 | disposition home health service (06) ==
LOC: FASU 10:30 → FM/S 19:12 → FASU 10-31 12:45
PROVIDERS: ATTEND Student in an Organized Health Care Education/Training Program
PROC: 8E0YXBZ Computer Assisted Procedure of Lower Extremity (ICD-10-PCS; 2017-10-30)
PROC: 8E0Y0CZ Robotic Assisted Procedure of Lower Extremity, Open Approach (ICD-10-PCS; 2017-10-30)
PROC: 0SRC0L9 Replacement of Right Knee Joint with Medial Unicondylar Synthetic Substitute, Cemented, Open Approach (ICD-10-PCS; principal; 2017-10-30 13:11)
DX: M17.11 Unilateral primary osteoarthritis, right knee (principal); I10 Essential (primary) hypertension; E78.5 Hyperlipidemia, unspecified; K21.9 Gastro-esophageal reflux disease without esophagitis; E11.9 Type 2 diabetes mellitus without complications; E66.9 Obesity, unspecified; Z68.33 Body mass index [BMI] 33.0-33.9, adult; Z87.891 Personal history of nicotine dependence
CPT/HCPCS: 20985; 27446; C1776; S2900; 36415; 73560-TC-RT-FY; 80048; 85027; 94760; 97116-GP; 97162-GP; J0131; J1100

== ENCOUNTER 2019-05-29 09:54 | Day surgery (SDC) | payer OTHER ==
[2019-05-21 17:50] VITALS: BMI 42.4
[2019-05-29 10:16] VITALS: TEMP 98.4
[2019-05-29 11:47] VITALS: BP 110/67; PULSE 80
--- NOTE | 2019-05-31 13:25 | PATH ---
Surgical Pathology Report Patient Name: IRIS CHRISTIANSEN [facility]. Rec. #: [id number] /Age/Gender: 1960 (Age: 59) / F Account: [id number] Location: [facility] Taken: 05/29/2019 Received: 05/29/2019 Reported: 05/31/2019 Physicians: Mamta Chaidez M.D. Specimen(s) Received A: SECOND PORTION DUODENUM B: ANTRUM C: GE JUNCTION Clinical History Abdominal discomfort Postoperative diagnosis: Gastritis Final Diagnosis A. SECOND PORTION DUODENUM, BIOPSY: DUODENUM MUCOSA WITH NO SIGNIFICANT PATHOLOGIC CHANGE. NO HISTOLOGIC EVIDENCE OF CELIAC DISEASE. B. GASTRIC ANTRUM, BIOPSY: GASTRIC MUCOSA WITH CHRONIC GASTRITIS. IMMUNOSTAIN FOR H. PYLORI IS NEGATIVE. NEGATIVE FOR INTESTINAL METAPLASIA. C. GE JUNCTION, BIOPSY: COLUMNAR (GASTRIC) MUCOSA WITH MILD CHRONIC INFLAMMATION. NEGATIVE FOR INTESTINAL METAPLASIA. Electronically Signed Fariba Mason M.D. Gross Description A. Received in formalin, labeled "biopsy second portion of duodenum" is a serrano, irregular portion of soft tissue measuring 0.4 cm. in greatest dimension. The specimen is submitted in toto in one cassette. B. Received in formalin, labeled "biopsy gastric antrum" is a serrano, irregular portion of soft tissue measuring 0.3 cm. in greatest dimension. The specimen is submitted in toto in one cassette. C. Received in formalin, labeled "biopsy GE junction" is a serrano, irregular portion of soft tissue measuring 0.1 cm. in greatest dimension. The specimen is submitted in toto in one cassette. 05/30/2019 saudi05/30/2019
== END 2019-05-29 11:45 | disposition home or self-care (01) ==
LOC: FASU-ENDO 09:54
PROVIDERS: ATTEND Internal Medicine Gastroenterology
PROC: 0DB68ZX Excision of Stomach, Via Natural or Artificial Opening Endoscopic, Diagnostic (ICD-10-PCS; 2019-05-29)
PROC: 0DB48ZX Excision of Esophagogastric Junction, Via Natural or Artificial Opening Endoscopic, Diagnostic (ICD-10-PCS; 2019-05-29)
PROC: 0DB98ZX Excision of Duodenum, Via Natural or Artificial Opening Endoscopic, Diagnostic (ICD-10-PCS; principal; 2019-05-29 11:00)
DX: K29.50 Unspecified chronic gastritis without bleeding (principal); K20.9 Esophagitis, unspecified; R10.13 Epigastric pain; R10.9 Unspecified abdominal pain
CPT/HCPCS: 88305-TC; 88342-TC

== ENCOUNTER 2020-11-06 05:09 | Emergency (ER) | payer OTHER ==
[2020-11-06] MEDS ORDERED: ACETAMINOPHEN 325 MG TABLET (FP) PO ONE (05:18)
[2020-11-06] MEDS ORDERED: ACETAMINOPHEN 325 MG TABLET (FP) ONE (05:33)
[2020-11-06 05:48] VITALS: BP 102/63; PULSE 88; TEMP 98.1; BMI 43.8
== END 2020-11-06 06:54 | disposition home or self-care (01) ==
LOC: JER 05:09
PROC: 2W39X1Z Immobilization of Left Upper Extremity using Splint (ICD-10-PCS; principal; 2020-11-06)
DX: S52.132A Displaced fracture of neck of left radius, initial encounter for closed fracture (principal)
CPT/HCPCS: 73070-TC-LT-FY; 99283-25

== ENCOUNTER 2021-05-05 18:45 | Emergency (ER) | payer OTHER ==
[2021-05-05 18:58] VITALS: TEMP 98.2; BMI 41.1
[2021-05-05 19:44] LABS: BASO % 1.1 % (0-2.0); EOS % 2.4 % (0-4.5); HEMATOCRIT 43.2 % (32.4-45.2); HEMOGLOBIN 14.3 GM/dL (10.7-15.3); LYMPH % 31.9 % (8-40); MCH 32.2 pg (25.7-33.7); MCHC 33.2 g/dl (32.0-36.0); MEAN PLT VOLUME 6.6 fl (7.5-11.1); MONO % 11.1 % (3.8-10.2); NEUT % 53.5 % (42.8-82.8); PLATELET COUNT 300 10^3/uL (134-434); RBC 4.45 M/mm3 (3.60-5.2); RDW 14.5 % (11.6-15.6)
[2021-05-05] MEDS ORDERED: ASPIRIN 81 MG CHEWABLE TABLETS PO ONE (19:48)
[2021-05-05] MEDS ORDERED: ASPIRIN 81 MG CHEWABLE TABLETS ONE (19:50)
[2021-05-05 19:54] LABS: INR 0.84 (0.83-1.09); PROTHROMBIN TIME (PATIENT) 10.3 SEC (9.7-13.0)
[2021-05-05 19:56] LABS: ACTIVATED PTT 23.2 SECONDS (25.2-36.5); CHLORIDE 107 mmol/L (98-107); SODIUM 141 mmol/L (136-145)
[2021-05-05 19:57] LABS: CALCIUM 8.8 mg/dL (8.5-10.1)
[2021-05-05 19:58] LABS: ALBUMIN 3.3 g/dl (3.4-5.0); ANION GAP 6 MMOL/L (8-16); BLOOD UREA NITROGEN 16.2 mg/dL (7-18); CO2 28 mmol/L (21-32); GLUCOSE,RANDOM 126 mg/dL (74-106)
[2021-05-05 20:01] LABS: CREATININE 0.7 mg/dL (0.55-1.3); SGOT/AST 16 U/L (15-37); SGPT/ALT 35 U/L (13-61)
[2021-05-05 20:02] LABS: BILIRUBIN,TOTAL 0.3 mg/dL (0.2-1)
[2021-05-05 20:03] LABS: ALK PHOS 73 U/L (45-117)
[2021-05-05 20:04] LABS: TOT PROT 6.8 g/dl (6.4-8.2)
[2021-05-05 22:38] VITALS: BP 111/64; PULSE 81
== END 2021-05-05 23:03 | disposition home or self-care (01) ==
LOC: JER 18:45
DX: R07.9 Chest pain, unspecified (principal)
CPT/HCPCS: 36415; 71045-TC-FY; 80053; 82550; 84484; 85025; 85610; 85730; 93005; 93010; 99285-25

== ENCOUNTER 2022-01-12 09:25 | Day surgery (SDC) | payer BC ==
[2022-01-12 09:52] VITALS: BMI 41.8
[2022-01-12 11:15] VITALS: TEMP 97.7
[2022-01-12 11:44] VITALS: BP 116/55; PULSE 86
== END 2022-01-12 11:40 | disposition home or self-care (01) ==
LOC: FASU-ENDO 09:25
PROVIDERS: ATTEND Internal Medicine Gastroenterology
PROC: 0DBL8ZX Excision of Transverse Colon, Via Natural or Artificial Opening Endoscopic, Diagnostic (ICD-10-PCS; principal; 2022-01-12 10:44)
DX: Z12.11 Encounter for screening for malignant neoplasm of colon (principal); D12.3 Benign neoplasm of transverse colon; K64.1 Second degree hemorrhoids; K57.30 Diverticulosis of large intestine without perforation or abscess without bleeding; K59.00 Constipation, unspecified; K92.1 Melena
CPT/HCPCS: 88305-TC

== ENCOUNTER 2023-01-25 18:03 | Emergency (ER) | payer BC ==
[2023-01-25 18:15] VITALS: BMI 38.7
[2023-01-25] MEDS ORDERED: METOCLOPRAMIDE HCL INJECTION 10 MG/2 ML VIAL IVPUSH ONE (18:51)
[2023-01-25] MEDS ORDERED: LIDOCAINE 5% TOPICAL PATCH TP ONE (18:52)
[2023-01-25] MEDS ORDERED: ACETAMINOPHEN 1000 MG/100 ML BAG IVPB ONE (19:22)
[2023-01-25] MEDS ORDERED: diazePAM 5 MG TABLET PO ONE (19:22)
[2023-01-25 19:26] LABS: BASO % 1.4 % (0-2.0); EOS % 1.6 % (0-4.5); HEMATOCRIT 42.1 % (32.4-45.2); LYMPH % 35.1 % (8-40); MCH 31.8 pg (25.7-33.7); MCHC 33.2 g/dl (32.0-36.0); MEAN CELL VOLUME 95.7 fl (80-96); MEAN PLT VOLUME 6.9 fl (7.5-11.1); NEUT % 50.9 % (42.8-82.8); PLATELET COUNT 301 10^3/uL (134-434); RDW 13.9 % (11.6-15.6); WHITE BLOOD COUNT 7.9 K/mm3 (4.0-10.0)
[2023-01-25] MEDS ORDERED: METOCLOPRAMIDE HCL INJECTION 10 MG/2 ML VIAL ONE (19:43)
[2023-01-25] MEDS ORDERED: diazePAM 5 MG TABLET ONE (19:43)
[2023-01-25 19:44] LABS: POTASSIUM 3.7 mmol/L (3.5-5.1)
[2023-01-25] MEDS ORDERED: LIDOCAINE 5% TOPICAL PATCH ONE (19:44)
[2023-01-25] MEDS ORDERED: ACETAMINOPHEN INJECTION 100 ML IVPB ONE (19:44)
[2023-01-25 19:46] LABS: CALCIUM 9.1 mg/dL (8.5-10.1)
[2023-01-25 19:47] LABS: ALBUMIN 3.7 g/dl (3.4-5.0); BLOOD UREA NITROGEN 18.5 mg/dL (7-18)
[2023-01-25 19:50] LABS: CREATININE 0.7 mg/dL (0.55-1.3)
[2023-01-25 19:51] LABS: BILIRUBIN,TOTAL 0.4 mg/dL (0.2-1); TOT PROT 6.8 g/dl (6.4-8.2)
[2023-01-25 20:12] VITALS: BP 97/57; PULSE 76; RESP 17; TEMP 97.7
[2023-01-25] MEDS ORDERED: KETOROLAC TROMETHAMINE 15 MG/ML VIAL IVPUSH ONE (21:10)
[2023-01-25] MEDS ORDERED: LACTATED RINGERS SOLUTION 1000 ML INFUS.BAG IV ONE (21:11)
[2023-01-25] MEDS ORDERED: KETOROLAC TROMETHAMINE 15 MG/ML VIAL ONE (21:15)
[2023-01-25] MEDS ORDERED: LIDOCAINE PATCH REMOVAL MC SCH (22:00)
[2023-01-25] MEDS ORDERED: morphine CARPU-JECT 4 MG/1 ML DISP.SYRIN IVPUSH ONE (22:41)
[2023-01-25] MEDS ORDERED: morphine SULFATE 4 MG/ML VIAL ONE (22:47)
== END 2023-01-26 00:28 | disposition home or self-care (01) ==
LOC: JER 18:03
PROC: 3E033NZ Introduction of Analgesics, Hypnotics, Sedatives into Peripheral Vein, Percutaneous Approach (ICD-10-PCS; principal; 2023-01-25)
PROC: 3E0333Z Introduction of Anti-inflammatory into Peripheral Vein, Percutaneous Approach (ICD-10-PCS; 2023-01-25)
PROC: 3E033GC Introduction of Other Therapeutic Substance into Peripheral Vein, Percutaneous Approach (ICD-10-PCS; 2023-01-25)
PROC: 3E033GC Introduction of Other Therapeutic Substance into Peripheral Vein, Percutaneous Approach (ICD-10-PCS; 2023-01-25)
DX: R51.9 Headache, unspecified (principal)
CPT/HCPCS: 36415; 70450-TC; 80053; 85025; 99284-25

== ENCOUNTER 2024-05-08 18:21 | Observation (INO) | payer BC ==
[2024-05-08 18:26] VITALS: BMI 37.8
[2024-05-08 20:02] LABS: EOS % 1.7 % (0-4.5); HEMATOCRIT 34.6 % (32.4-45.2); HEMOGLOBIN 11.2 GM/dL (10.7-15.3); LYMPH % 37.1 % (8-40); MCH 29.2 pg (25.7-33.7); MCHC 32.5 g/dl (32.0-36.0); MEAN PLT VOLUME 6.4 fl (7.5-11.1); NEUT % 49.2 % (42.8-82.8); PLATELET COUNT 324 10^3/uL (134-434); RBC 3.84 M/mm3 (3.60-5.2); RDW 16.3 % (11.6-15.6); WHITE BLOOD COUNT 6.6 K/mm3 (4.0-10.0)
[2024-05-08 20:11] LABS: INR 1.01 (0.83-1.09); PROTHROMBIN TIME (PATIENT) 11.4 SEC (9.7-13.0)
[2024-05-08 20:14] LABS: ACTIVATED PTT 27.9 SECONDS (25.2-36.5)
[2024-05-08 20:17] LABS: POTASSIUM 4.2 mmol/L (3.5-5.1)
[2024-05-08 20:19] LABS: CALCIUM 8.9 mg/dL (8.5-10.1)
[2024-05-08 20:20] LABS: ALBUMIN 3.4 g/dl (3.4-5.0); BLOOD UREA NITROGEN 18.7 mg/dL (7-18); MAGNESIUM 2.2 mg/dL (1.8-2.4)
[2024-05-08 20:22] LABS: CREATININE 0.7 mg/dL (0.55-1.3)
[2024-05-08 20:24] LABS: BILIRUBIN,TOTAL 0.3 mg/dL (0.2-1); TOT PROT 6.6 g/dl (6.4-8.2)
[2024-05-08] MEDS: SODIUM CHLORIDE 0.9% 500 ML INFUS.BAG IV ONE (20:31)
[2024-05-08 22:19] LABS: URINE APPEARANCE CLEAR; URINE BILIRUBIN NEGATIVE (NEGATIVE); URINE COLOR YELLOW; URINE GLUCOSE (UA) NEGATIVE (NEGATIVE); URINE KETONE NEGATIVE (NEGATIVE); URINE LEUK ESTERASE NEGATIVE (NEGATIVE); URINE NITRITE NEGATIVE (NEGATIVE); URINE PROTEIN NEGATIVE (NEGATIVE); URINE UROBILINOGEN 0.2 mg/dL (0.2-1.0)
[2024-05-09 09:14] LABS: BASO % 0.9 % (0-2.0); EOS % 2.1 % (0-4.5); HEMATOCRIT 33.5 % (32.4-45.2); MCH 29.6 pg (25.7-33.7); MCHC 32.8 g/dl (32.0-36.0); MEAN CELL VOLUME 90.1 fl (80-96); MEAN PLT VOLUME 6.8 fl (7.5-11.1); MONO % 10.5 % (3.8-10.2); NEUT % 43.5 % (42.8-82.8); PLATELET COUNT 325 10^3/uL (134-434); RBC 3.71 M/mm3 (3.60-5.2); RDW 16.3 % (11.6-15.6); WHITE BLOOD COUNT 6.9 K/mm3 (4.0-10.0)
[2024-05-09 09:38] LABS: POTASSIUM 3.5 mmol/L (3.5-5.1)
[2024-05-09 09:43] LABS: BLOOD UREA NITROGEN 13.9 mg/dL (7-18)
[2024-05-09 09:46] LABS: CREATININE 0.6 mg/dL (0.55-1.3)
[2024-05-09] MEDS: ASPIRIN 81 MG CHEWABLE TABLETS PO SCH (10:37)
[2024-05-09] MEDS: FAMOTIDINE 20 MG TABLET PO SCH (10:38)
[2024-05-09] MEDS: SOLIFENACIN SUCCINATE 5 MG TAB PO SCH (10:38)
[2024-05-09] MEDS: ASCORBIC ACID 500 MG TABLET (FP) PO SCH (10:38)
[2024-05-09] MEDS: TOPIRAMATE 25 MG TABLET PO SCH (10:38)
[2024-05-09] MEDS: CALCIUM CARBONATE 650 MG TABLET PO SCH (10:39)
[2024-05-09] MEDS: CYANOCOBALAMIN 1,000 MCG TABLET (FP) PO SCH (10:39)
[2024-05-09] MEDS: CHOLECALCIFEROL (VIT D3) 1,000 UNIT (25 MCG) TABLET PO SCH (10:39)
[2024-05-09] MEDS: ZINC SULFATE 220 MG CAPSULE (FP) PO SCH (10:39)
[2024-05-09 10:47] LABS: N-TERMINAL BNP 68.4 pg/ml (5-125)
[2024-05-09] MEDS: POTASSIUM CHLORIDE ORAL LIQUID 20 MEQ/15 ML PO ONE (16:57)
[2024-05-09 20:43] VITALS: RESP 19
[2024-05-09] MEDS: SENNOSIDES 8.6MG TABLET (FP) PO SCH (21:53)
[2024-05-09] MEDS: ROSUVASTATIN CA 10 MG TABLET PO SCH (21:54)
[2024-05-10 04:24] VITALS: TEMP 98.2
[2024-05-10] MEDS: SUMAtriptan SUCCINATE 50 MG TABLET PO PRN (06:55)
[2024-05-10 08:06] VITALS: BP 100/67; PULSE 102
== END 2024-05-10 10:04 | disposition home or self-care (01) ==
LOC: JER 18:21 → JERBED 05-09 00:23 → J7W 05-09 02:17
PROVIDERS: ADMIT Student in an Organized Health Care Education/Training Program; ATTEND Family Medicine
PROC: 3E0337Z Introduction of Electrolytic and Water Balance Substance into Peripheral Vein, Percutaneous Approach (ICD-10-PCS; principal; 2024-05-09)
DX: I47.10 Supraventricular tachycardia, unspecified (principal); I25.10 Atherosclerotic heart disease of native coronary artery without angina pectoris; I95.9 Hypotension, unspecified; E66.9 Obesity, unspecified; K21.9 Gastro-esophageal reflux disease without esophagitis; E78.5 Hyperlipidemia, unspecified; I50.30 Unspecified diastolic (congestive) heart failure
CPT/HCPCS: 36415; 71046-TC-FY; 80048; 80053; 80061; 81003; 82533; 83036; 83735; 83880; 84443; 84484; 85025; 85610; 85730; 86850; 86900; 86901; 87086; 87635; 93005; 93010; 99285-25; G0378

== ENCOUNTER → 2025-05-01 | Day surgery (SDC) | payer BC, OTHER | END | disposition home or self-care (01) | LOC: JRADIR 10:34 | PROVIDERS: ATTEND Internal Medicine Endocrinology, Diabetes & Metabolism | PROC: 0G9K3ZX Drainage of Thyroid Gland, Percutaneous Approach, Diagnostic (ICD-10-PCS; principal; 2025-05-01) | DX: E04.1 Nontoxic single thyroid nodule (principal) | CPT/HCPCS: 10005; 76942; 88173; 88305-TC ==